=== PATIENT | male | born 1955 | race Caucasian/White ===

== ENCOUNTER 2022-06-17 07:27 | Inpatient (IN) | payer OTHER ==
--- NOTE | 2022-06-17 07:41 | ED ---
General Adult HPI - General Chief complaint: Shortness of Breath Stated complaint: VIOLA Time Seen by Provider: 06/17/22 07:30 Source: patient, EMS, RN notes reviewed Mode of arrival: EMS Limitations: no limitations - History of Present Illness Initial comments: Patient is a pleasant 66-year-old male presenting to the emergency department with concerns with difficulty in breathing. Onset of symptoms was 2 days ago while working in the yard. Patient does have chest pressure that has been persistent since that time rated 5/10. No radiation of pressure. Patient has had some difficulty in breathing. Dyspnea did not seem as bad yesterday but worsened again today. Patient denies any fevers. Patient does have recent exposure and spouse a month ago from COVID-19 infection. No history of similar symptoms previously. - Related Data Home Medications Medication Instructions Recorded Confirmed No Known Home Medications 06/17/22 06/17/22 Allergies Allergy/AdvReac Type Severity Reaction Status Date / Time No Known Allergies Allergy Verified 06/17/22 10:02 Review of Systems ROS Statement: Those systems with pertinent positive or pertinent negative responses have been documented in the HPI. ROS Other: All systems not noted in ROS Statement are negative. Constitutional: Denies: fever, chills Eyes: Denies: eye pain ENT: Denies: ear pain Respiratory: Reports: dyspnea. Denies: cough Cardiovascular: Reports: chest pain Endocrine: Denies: fatigue Gastrointestinal: Denies: abdominal pain Genitourinary: Denies: urgency Musculoskeletal: Denies: back pain Skin: Denies: rash Neurological: Denies: weakness Past Medical History Past Medical History: No Reported History History of Any Multi-Drug Resistant Organisms: None Reported Past Surgical History: Appendectomy, Hernia Repair Past Psychological History: No Psychological Hx Reported Smoking Status: Current every day smoker Past Alcohol Use History: Occasional Past Drug Use History: None Reported General Exam Limitations: no limitations General appearance: alert, in no apparent distress Head exam: Present: normocephalic Eye exam: Present: normal appearance Respiratory exam: Present: normal lung sounds bilaterally. Absent: respiratory distress, decreased breath sounds Cardiovascular Exam: Present: tachycardia GI/Abdominal exam: Present: soft. Absent: tenderness Extremities exam: Present: calf tenderness (Mild left upper) Back exam: Present: normal inspection Neurological exam: Present: alert Psychiatric exam: Present: normal affect, normal mood Skin exam: Present: normal color Course Vital Signs 06/17/22 06/17/22 06/17/22 07:29 07:47 07:49 Pulse Rate 128 H 118 H Respiratory 28 H 26 H 28 H Rate Blood Pressure 121/81 126/81 O2 Sat by Pulse 90 L 96 Oximetry 06/17/22 06/17/22 06/17/22 08:00 09:00 10:00 Pulse Rate 118 H 120 H 118 H Respiratory 26 H 15 15 Rate Blood Pressure 140/81 129/85 141/95 O2 Sat by Pulse 93 L 93 L 96 Oximetry EKG Findings - EKG Results: EKG: interpreted by NICHOLASD (Atrial tachycardia with a rate of 126. Right axis. Septal Q waves. Nonspecific ST-T) Medical Decision Making - Medical Decision Making Was pt. sent in by a medical professional or institution (, MAIKEL, COMMUNICATIONS STRATEGIST, urgent care, hospital, or detention...) When possible be specific @ -No Did you speak to anyone other than the patient for history (EMS, parent, family, police, friend...)? What history was obtained from this source @ -No Did you review nursing and triage notes (agree or disagree)? Why? @ -I reviewed and agree with nursing and triage notes Were old charts reviewed (outside hosp., previous admission, EMS record, old EKG, old radiological studies, urgent care reports/EKG's, detention records)? Report findings @ -No old charts were reviewed Differential Diagnosis (chest pain, altered mental status, abdominal pain women, abdominal pain men, vaginal bleeding, weakness, fever, dyspnea, syncope, headache, dizziness, GI bleed, back pain, seizure, CVA, palpatations, mental health)? @ -Differential Dyspnea: Coronary syndrome, arrhythmia, tamponade, asthma, COPD, pulmonary embolism, pneumonia, pneumothorax, pulmonary effusion, anaphylaxis, diabetic ketoacidosis, flailed chest, pulmonary contusion, diaphragmatic rupture, anemia, neuromuscular, this is not meant to be an all-inclusive list. EKG interpreted by me (3pts min.). @ -As above X-rays interpreted by me (1pt min.). @ -Chest x-ray does not reveal acute abnormality CT interpreted by me (1pt min.). @ -Report reviewed U/S interpreted by me (1pt. min.). @ -Are reviewed What testing was considered but not performed or refused? (CT, X-rays, U/S, labs)? Why? @ -None What meds were considered but not given or refused? Why? @ -None Did you discuss the management of the patient with other professionals (professionals i.e. , PA, COMMUNICATIONS STRATEGIST, lab, RT, psych nurse, neonatal social worker, weight training instructor, teacher, preventive medicine officer, hospice case manager)? Give summary @ -Case was discussed with cardiology, Dr. Rm who will consult for possible ekos. Case was also discussed with Dr. Mack, who will admit covering Dr. Lindquist me. Case also discussed with pulmonary Dr. Henson who will consult and agrees with ICU admission. Was smoking cessation discussed for >3mins.? @ -No Was critical care preformed (if so, how long)? @ -33 minutes crackle care time Were there social determinants of health that impacted care today? How? (Homelessness, low income, unemployed, alcoholism, drug addiction, transportation, low edu. Level, literacy, decrease access to med. care, intermediate, rehab)? @ -No Was there de-escalation of care discussed even if they declined (Discuss DNR or withdrawal of care, Hospice)? DNR status @ -No What co-morbidities impacted this encounter? (DM, HTN, Smoking, COPD, CAD, Cancer, CVA, ARF, Chemo, Hep., AIDS, mental health diagnosis, sleep apnea, mo rbid obesity)? @ -None Was patient admitted / discharged? Hospital course, mention meds given and route, prescriptions, significant lab abnormalities, going to OR and other pertinent info. @ -Patient reevaluated and still remains tachycardic. Patient still has dyspnea. Patient has large pulmonary embolism and will be admitted to intensive care unit and will need monitoring with heparin. Patient be evaluated with echo and cardiology for possible clot retrieval. Patient and family are updated on results and plan. Undiagnosed new problem with uncertain prognosis? @ -No Drug Therapy requiring intensive monitoring for toxicity (Heparin, Nitro, Insulin, Cardizem)? @ -Patient does require monitoring for heparin Were any procedures done? @ -No Diagnosis/symptom? @ -Large pulmonary embolism with heart strain. DVT Acute, or Chronic, or Acute on Chronic? @ -Acute, acute Uncomplicated (without systemic symptoms) or Complicated (systemic symptoms)? @ -Complicated with heart strain Side effects of treatment? @ -No Exacerbation, Progression, or Severe Exacerbation? @ -No Poses a threat to life or bodily function? How? (Chest pain, USA, PA, pneumonia, PE, COPD, DKA, ARF, appy, cholecystitis, CVA, Diverticulitis, Homicidal, Suicidal, threat to staff... and all critical care pts) @ -Large potential to life through hypoxia and heart strain - Lab Data Result diagrams: 06/17/22 07:42 06/17/22 07:42 Lab Results 06/17/22 06/17/22 06/17/22 Range/Units 07:42 07:42 07:42 WBC 14.7 H (3.8-10.6) k/uL RBC 5.86 (4.30-5.90) m/uL Hgb 17.3 (13.0-17.5) gm/dL Hct 51.4 (39.0-53.0) % MCV 87.8 (80.0-100.0) fL MCH 29.6 (25.0-35.0) pg MCHC 33.7 (31.0-37.0) g/dL RDW 13.7 (11.5-15.5) % Plt Count 182 (150-450) k/uL MPV 7.4 Neutrophils % 81 % Lymphocytes % 11 % Monocytes % 5 % Eosinophils % 2 % Basophils % 0 % Neutrophils # 11.9 H (1.3-7.7) k/uL Lymphocytes # 1.6 (1.0-4.8) k/uL Monocytes # 0.8 (0-1.0) k/uL Eosinophils # 0.3 (0-0.7) k/uL Basophils # 0.0 (0-0.2) k/uL PT 11.5 (9.0-12.0) sec INR 1.1 (<1.2) APTT 23.0 (22.0-30.0) sec D-Dimer 23.80 H (<0.60) mg/L FEU Sodium 138 (137-145) mmol/L Potassium 4.5 (3.5-5.1) mmol/L Chloride 108 H (98-107) mmol/L Carbon Dioxide 19 L (22-30) mmol/L Anion Gap 11 mmol/L BUN 19 (9-20) mg/dL Creatinine 1.06 (0.66-1.25) mg/dL Est GFR (CKD-EPI)AfAm 86 (>60 ml/min/1.73 sqM) Est GFR (CKD-EPI)NonAf 74 (>60 ml/min/1.73 sqM) Glucose 157 H (74-99) mg/dL Plasma Lactic Acid Cody (0.7-2.0) mmol/L Calcium 9.2 (8.4-10.2) mg/dL Magnesium 1.9 (1.6-2.3) mg/dL Total Bilirubin 1.7 H (0.2-1.3) mg/dL AST 29 (17-59) U/L ALT 30 (4-49) U/L Alkaline Phosphatase 71 (38-126) U/L Troponin I (0.000-0.034) ng/mL Total Protein 7.8 (6.3-8.2) g/dL Albumin 4.2 (3.5-5.0) g/dL 06/17/22 06/17/22 Range/Units 07:42 07:42 WBC (3.8-10.6) k/uL RBC (4.30-5.90) m/uL Hgb (13.0-17.5) gm/dL Hct (39.0-53.0) % MCV (80.0-100.0) fL MCH (25.0-35.0) pg MCHC (31.0-37.0) g/dL RDW (11.5-15.5) % Plt Count (150-450) k/uL MPV Neutrophils % % Lymphocytes % % Monocytes % % Eosinophils % % Basophils % % Neutrophils # (1.3-7.7) k/uL Lymphocytes # (1.0-4.8) k/uL Monocytes # (0-1.0) k/uL Eosinophils # (0-0.7) k/uL Basophils # (0-0.2) k/uL PT (9.0-12.0) sec INR (<1.2) APTT (22.0-30.0) sec D-Dimer (<0.60) mg/L FEU Sodium (137-145) mmol/L Potassium (3.5-5.1) mmol/L Chloride (98-107) mmol/L Carbon Dioxide (22-30) mmol/L Anion Gap mmol/L BUN (9-20) mg/dL Creatinine (0.66-1.25) mg/dL Est GFR (CKD-EPI)AfAm (>60 ml/min/1.73 sqM) Est GFR (CKD-EPI)NonAf (>60 ml/min/1.73 sqM) Glucose (74-99) mg/dL Plasma Lactic Acid Cody 1.8 (0.7-2.0) mmol/L Calcium (8.4-10.2) mg/dL Magnesium (1.6-2.3) mg/dL Total Bilirubin (0.2-1.3) mg/dL AST (17-59) U/L ALT (4-49) U/L Alkaline Phosphatase (38-126) U/L Troponin I 0.254 H* (0.000-0.034) ng/mL Total Protein (6.3-8.2) g/dL Albumin (3.5-5.0) g/dL Critical Care Time Critical Care Time: Yes Total Critical Care Time: 33 Disposition Clinical Impression: Bilateral pulmonary embolism, DVT (deep venous thrombosis) Disposition: ADMITTED IP TO THIS [facility] Condition: Critical Is patient prescribed a controlled substance at d/c from ED?: No Referrals: None,Stated [REFERRING] - 1-2 days Time of Disposition: 10:11
[2022-06-17 07:56] LABS: Basophils % (A) 0 %; Eosinophils # (A) 0.3 k/uL (0-0.7); Eosinophils % (A) 2 %; HCT 51.4 % (39.0-53.0); HGB 17.3 gm/dL (13.0-17.5); Lymphocytes # (A) 1.6 k/uL (1.0-4.8); Lymphocytes % (A) 11 %; MCH 29.6 pg (25.0-35.0); MCHC 33.7 g/dL (31.0-37.0); MCV 87.8 fL (80.0-100.0); Mean Platelet Volume 7.4; Monocytes # (A) 0.8 k/uL (0-1.0); Monocytes % (A) 5 %; Neutrophils # (A) 11.9 k/uL (1.3-7.7); Neutrophils % (A) 81 %; Platelet Count 182 k/uL (150-450); RBC 5.86 m/uL (4.30-5.90); RDW 13.7 % (11.5-15.5); WBC 14.7 k/uL (3.8-10.6)
[2022-06-17 08:11] LABS: Albumin 4.2 g/dL (3.5-5.0); Calcium 9.2 mg/dL (8.4-10.2); Magnesium 1.9 mg/dL (1.6-2.3); Potassium 4.5 mmol/L (3.5-5.1); Total Bilirubin 1.7 mg/dL (0.2-1.3); Total Protein 7.8 g/dL (6.3-8.2)
[2022-06-17 08:17] LABS: INR 1.1 (<1.2); Prothrombin Time 11.5 sec (9.0-12.0)
--- NOTE | 2022-06-17 08:35 | XR ---
EXAMINATION TYPE: XR chest 2V DATE OF EXAM: 06/17/2022 COMPARISON: NONE HISTORY: Shortness of breath TECHNIQUE: Frontal and lateral views of the chest are obtained. FINDINGS: Scattered senescent parenchymal changes noted. Hyperinflation compatible with COPD. No evidence for infiltrate. No evidence for atelectasis. Heart size is stable. Mediastinal structures are stable and grossly unremarkable. No evidence for hilar prominence. Degenerative changes dorsal spine. IMPRESSION: 1. No evidence for acute pulmonary disease.
[2022-06-17] MEDS ORDERED: HEPARIN SODIUM 1,000 UN/ML (10ML VL) IV ONE ×2 (08:57→13:48)
[2022-06-17] MEDS ORDERED: HEPARIN SODIUM 1,000 UN/ML (10ML VL) IV PRN ×2 (08:57→14:47)
--- NOTE | 2022-06-17 08:57 | US ---
EXAMINATION TYPE: US venous doppler duplex LE LT DATE OF EXAM: 06/17/2022 8:49 AM COMPARISON: NONE CLINICAL INDICATION: Male, 66 years old with history of pain; pain SOB SIDE PERFORMED: Left TECHNIQUE: The lower extremity deep venous system is examined utilizing real time linear array sonog rey with graded compression, doppler sonography and color-flow sonography. VESSELS IMAGED: Common Femoral Vein Deep Femoral Vein Greater Saphenous Vein * Femoral Vein Popliteal Vein Small Saphenous Vein * Proximal Calf Veins (* superficial vessels) Left Leg: Positive for DVT from Common Femoral Vein to Popliteal Vein. IMPRESSION: Positive deep vein thrombosis involving the common femoral vein to popliteal vein. Findings communicated to Dr. Chinedu Jdae DO on 06/17/2022 8:[address] nAgel Giron.
[2022-06-17] MEDS ORDERED: HEPARIN SOD,PORK IN 0.45% NACL 25,000 UNIT in 0.45% NACL 1 250ML.BAG IV SCH (09:00)
--- NOTE | 2022-06-17 09:32 | CT ---
EXAMINATION TYPE: CT angio chest CT DLP: 1036.8 mGycm, Automated exposure control for dose reduction was used. DATE OF EXAM: 06/17/2022 9:14 AM COMPARISON: Chest radiograph same day. CLINICAL INDICATION:Male, 66 years old with history of dyspnea; PE TECHNIQUE/CONTRAST: CTA scan of the thorax is performed with IV Contrast, patient injected with 100 mL of Isovue 370, pul monary embolism protocol. MIP images are created and reviewed [facility] FINDINGS: Pulmonary Artery: Bilateral pulmonary emboli involving the right and left pulmonary arteries extendin g into the lobar, segmental and subsegmental branches. There is flattening of the interventricular se ptum with reflux of contrast into the IVC. RV:LV = 41 mm : 26 mm = 1.57. The pulmonary trunk measures 3.2 cm. Lungs/Pleura: Few groundglass opacities most pronounced in the right upper lung more centrally and le ft lower lobe. There is motion artifact. Posterior dependent atelectasis. Airway: Large airways are patent. Heart: Heart is within normal limits for size. Vasculature: No evidence of aortic aneurysm. Mediastinum: No gross evidence of adenopathy. Musculoskeletal: No acute osseous abnormalities, multilevel disc degeneration changes with bridging s yndesmophytes compatible with diffuse idiopathic skeletal hyperostosis. Soft Tissues: Unremarkable. Lower neck: No significant findings. Upper Abdomen: No significant findings. IMPRESSION: 1. Bilateral pulmonary emboli extending into the lobar, segmental and subsegmental branches. There i s evidence of right heart strain. RV:LV = 1.57. 2. More central right upper lung ground glass opacity could represent pulmonary infarct versus super imposed early infectious/inflammatory process. 3. Evidence of pulmonary hypertension. Findings communicated to Dr. Chinedu Jade DO on 06/17/2022 9:[address] Angel Giron.
[2022-06-17] MEDS ORDERED: NALOXONE 0.4 MG/ML 1 ML VIAL IV PRN (10:11)
[2022-06-17] MEDS: PANTOPRAZOLE 40 MG/10 ML VIAL IV SCH (10:56)
[2022-06-17 11:21] LABS: Glucose,Whole Blood 109 mg/dL (70-110)
--- NOTE | 2022-06-17 12:12 | P.CRDCN ---
History of Present Illness Consult date: 06/17/22 History of present illness: HISTORY OF PRESENT ILLNESS: This is a 66-year-old male with a past medical history significant for DVT and nicotine dependence. 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 We have been asked to see the patient in consultation for PE. Patient examined at the bedside in the emergency room. Patient states he has been feeling short of breath for a few days. However his shortness of breath became worse today which prompted him to come to the emergency room. The patient was found to have left lower extremity DVT and pulmonary embolism with possible right heart strain. The patient was placed on IV heparin. The patient denies any chest pain or pressure. He continues to report shortness of breath. He is on 2 L nasal cannula. The patient reports he has had 2 or 3 blood clots in his legs over the past 15 years. He states that he was on anticoagulation at one time but believes the last time he was on blood thinners was about 12 years ago. * EKG reveals sinus tachycardia with heart rate of 126 * Chest xray negative for acute process * Venous Doppler: Positive for left lower extremity DVT * Chest CTA: Bilateral pulmonary embolism extending into the lobar, segmental and subsegmental branches. Evidence of right heart strain. * Laboratory data: WBC 14.7. Hemoglobin 17.3. Platelet count 182. D-dimer 23.80. Sodium 138. Potassium 4.5. B UN 19. Creatinine 1.06 troponin 0.254. * Current home cardiac medications include none REVIEW OF SYSTEMS: At the time of my exam: CONSTITUTIONAL: Denies fever or chills. HEENT: Denies blurred vision, vision changes, or eye pain. Denies hemoptysis CARDIOVASCULAR: Denies chest pain. Denies orthopnea. Denies PND. Denies palpitations RESPIRATORY: Denies shortness of breath. GASTROINTESTINAL: Denies abdominal pain. Denies nausea or vomiting. HEMATOLOGIC: Denies bleeding disorders. GENITOURINARY: Denies any blood in urine. SKIN: Denies pruitis. Denies rash. PHYSICAL EXAM: VITAL SIGNS: Reviewed. GENERAL: Well-developed in no acute distress. HEENT: Head is normocephalic. Pupils are equal, round. Sclerae anicteric. Mucous membranes of the mouth are moist. Neck supple. No JVD or thyromegaly LUNGS: Respirations even and unlabored. Lungs essentially clear to auscultation bilaterally. HEART: Regular rate and rhythm. S1 and S2 heard. ABDOMEN: Soft. Nondistended. Nontender. EXTREMITIES: Normal range of motion. No clubbing or cyanosis. Peripheral pulses intact. No lower extremity edema NEUROLOGIC: Awake and alert. Oriented x 3. 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 Signing provider agrees with the documented findings, assessment, and plan of care. Past Medical History Past Medical History: No Reported History History of Any Multi-Drug Resistant Organisms: None Reported Past Surgical History: Appendectomy, Hernia Repair Past Psychological History: No Psychological Hx Reported Smoking Status: Current every day smoker Past Alcohol Use History: Occasional Past Drug Use History: None Reported Medications and Allergies Home Medications Medication Instructions Recorded Confirmed Type No Known Home Medications 06/17/22 06/17/22 History Allergies Allergy/AdvReac Type Severity Reaction Status Date / Time No Known Allergies Allergy Verified 06/17/22 10:02 Physical Exam Vitals: Vital Signs Pulse Resp BP Pulse Ox 06/17/22 10:00 118 H 15 141/95 96 06/17/22 09:00 120 H 15 129/85 93 L 06/17/22 08:00 118 H 26 H 140/81 93 L 06/17/22 07:49 28 H 06/17/22 07:47 118 H 26 H 126/81 96 06/17/22 07:29 128 H 28 H 121/81 90 L Intake and Output 06/16/22 06/17/22 06/17/22 22:59 06:59 14:59 Other: Weight 149.685 kg Results 06/17/22 07:42 06/17/22 07:42 Cardiac Enzymes 06/17/22 06/17/22 Range/Units 07:42 07:42 AST 29 (17-59) U/L Troponin I 0.254 H* (0.000-0.034) ng/mL Coagulation 06/17/22 Range/Units 07:42 PT 11.5 (9.0-12.0) sec APTT 23.0 (22.0-30.0) sec CBC 06/17/22 Range/Units 07:42 WBC 14.7 H (3.8-10.6) k/uL RBC 5.86 (4.30-5.90) m/uL Hgb 17.3 (13.0-17.5) gm/dL Hct 51.4 (39.0-53.0) % Plt Count 182 (150-450) k/uL Comprehensive Metabolic Panel 06/17/22 Range/Units 07:42 Sodium 138 (137-145) mmol/L Potassium 4.5 (3.5-5.1) mmol/L Chloride 108 H (98-107) mmol/L Carbon Dioxide 19 L (22-30) mmol/L BUN 19 (9-20) mg/dL Creatinine 1.06 (0.66-1.25) mg/dL Glucose 157 H (74-99) mg/dL Calcium 9.2 (8.4-10.2) mg/dL AST 29 (17-59) U/L ALT 30 (4-49) U/L Alkaline Phosphatase 71 (38-126) U/L Total Protein 7.8 (6.3-8.2) g/dL Albumin 4.2 (3.5-5.0) g/dL Current Medications Generic Name Dose Route Start Last Admin Trade Name Freq PRN Reason Stop Dose Admin Acetaminophen 650 mg 06/17/22 10:11 Acetaminophen Tab 325 Mg Tab PO Q4HR PRN Fever and/or Mild Pain Heparin Sodium (Porcine) 0 unit 06/17/22 08:57 Heparin Sodium 1,000 Un/Ml (10ml Vl) IV PER PROTOCOL PRN Low PTT Protocol Heparin Sodium/Sodium Chloride 250 mls @ 22.992 mls/hr 06/17/22 09:00 06/17/22 09:20 25,000 unit/ Sodium Chloride IV 15.36 units/kg/hr .[id number] SHANNAN 22.992 mls/hr Administration Protocol 15.36 UNITS/KG/HR Naloxone HCl 0.2 mg 06/17/22 10:11 Naloxone 0.4 Mg/Ml 1 Ml Vial IV Q2M PRN Opioid Reversal Pantoprazole Sodium 40 mg 06/17/22 10:15 06/17/22 10:56 Pantoprazole 40 Mg/10 Ml Vial IV 40 mg DAILY SHANNAN Administration Intake and Output 06/16/22 06/17/22 06/17/22 22:59 06:59 14:59 Other: Weight 149.685 kg Patient Weight 06/18/22 06:59 Weight 149.685 kg 06/17/22 07:42 06/17/22 07:42
[2022-06-17] MEDS ORDERED: fentaNYL (PF) 50 MCG/ML 2 ML AMP ONE (12:57)
[2022-06-17] MEDS ORDERED: LIDOCAINE 1% INJ 10MG/ML (30 ML VIAL-PF) SQ ONE (13:05)
[2022-06-17] MEDS ORDERED: fentaNYL (PF) 50 MCG/ML 2 ML AMP IV ONE (13:05)
[2022-06-17] MEDS ORDERED: SODIUM CHLORIDE 0.9% 500 ML 500 ML IV ONE (13:05)
--- NOTE | 2022-06-17 13:45 | P.CNPUL ---
History of Present Illness Consult date: 06/17/22 Requesting physician: Ambrosio Cox Reason for consult: dyspnea, chest pain, hypoxemia, pulmonary embolism, abnormal CXR/CT Chief complaint: Shortness of breath. History of present illness: Pulmonary/critical care consult dated 06/17/2022. 66-year-old male seen in the intensive care unit, for shortness of breath. He was initially evaluated in the emergency room, on June 17, by Dr. Leonid Jade. The patient came into the emergency room complaining of 2 days worth of increasing shortness of breath, while working out in the yard. The patient also admitted to some chest pressure, in the center of his chest. He denied any fever or chills. He denied any cough or phlegm production. The patient apparently takes no medications at home, and has no significant past medical history. He's had an appendectomy and hernia surgery in the past. He does smoke cigarettes on a regular basis. No illicit drug use, and occasional alcohol use. Laboratory data includes a white count of 14.7, with a normal hemoglobin, hematocrit, and platelet count. His d-dimer was nearly 24. Sodium 138, potassium 4.5, chlorides 108, CO2 19, anion gap 11, BUN 19, creatinine 1.06. Glucose was 157. The patient's troponin was 0.254. Testing for coronavirus was negative. Chest x-ray was normal to my eye. Dopplers of the lower extremities revealed a left DVT in the common femoral vein. CT angiogram revealed bilateral pulmonary emboli, with evidence of right heart strain. Review of Systems REVIEW OF SYSTEMS: CONSTITUTIONAL: [Negative.] NEUROLOGIC: [ Negative.] HEENT: [ Negative.] CARDIAC: Chest pressure PULMONARY: Shortness of breath. GI: [Negative.] : [Negative.] RHEUMATOLOGIC: [ Negative.] IMMUNOLOGIC: [ Negative.] ENDOCRINE: [Negative. ] DERMATOLOGIC: [Negative.] Past Medical History Past Medical History: No Reported History History of Any Multi-Drug Resistant Organisms: None Reported Past Surgical History: Appendectomy, Hernia Repair Past Psychological History: No Psychological Hx Reported Smoking Status: Current every day smoker Past Alcohol Use History: Occasional Past Drug Use History: None Reported Medications and Allergies Home Medications Medication Instructions Recorded Confirmed Type No Known Home Medications 06/17/22 06/17/22 History Allergies Allergy/AdvReac Type Severity Reaction Status Date / Time No Known Allergies Allergy Verified 06/17/22 10:02 Physical Exam Osteopathic Statement: *. No significant issues noted on an osteopathic structural exam other than those noted in the History and Physical/Consult. Vitals: Vital Signs Pulse Resp BP Pulse Ox 06/17/22 10:00 118 H 15 141/95 96 06/17/22 09:00 120 H 15 129/85 93 L 06/17/22 08:00 118 H 26 H 140/81 93 L 06/17/22 07:49 28 H 06/17/22 07:47 118 H 26 H 126/81 96 06/17/22 07:29 128 H 28 H 121/81 90 L Intake and Output 06/16/22 06/17/22 06/17/22 22:59 06:59 14:59 Other: Weight 149.685 kg No acute distress, oriented 3. 4 L saturation 96%. No conversational dyspnea or use of accessory muscles. HEENT examination is grossly unremarkable. Neck supple. Full range of motion. No adenopathy thyromegaly or neck vein distention. Cardiovascular examination reveals regular rhythm rate. S1-S2 normal. No S3 or S4. No discernible murmur noted. Heart sounds are distant. Heart rate about 110 bpm. Lungs reveal mostly clear breath sounds. Minimal rhonchi noted. No wheezes or crackles. Breath sounds are equal bilaterally. Abdomen soft bowel sounds are heard. No masses or tenderness. Extremities are intact. No cyanosis clubbing or edema. Left leg tenderness on palpation. Skin is without rash or lesion. Neurologic examination is brief but nonfocal. Results - Laboratory Findings CBC and BMP: 06/17/22 07:42 06/17/22 07:42 PT/INR, D-dimer PT 11.5 sec (9.0-12.0) 06/17/22 07:42 INR 1.1 (<1.2) 06/17/22 07:42 D-Dimer 23.80 mg/L FEU (<0.60) H 06/17/22 07:42 Abnormal lab findings: Abnormal Labs 06/17/22 06/17/22 06/17/22 07:42 07:42 07:42 WBC 14.7 H Neutrophils # 11.9 H D-Dimer 23.80 H Chloride 108 H Carbon Dioxide 19 L Glucose 157 H Total Bilirubin 1.7 H Troponin I 06/17/22 07:42 WBC Neutrophils # D-Dimer Chloride Carbon Dioxide Glucose Total Bilirubin Troponin I 0.254 H* - Diagnostic Findings Chest x-ray: image reviewed CT scan - chest: image reviewed U/S of Legs: image reviewed Assessment and Plan Assessment: Acute hypoxemic respiratory failure secondary to acute bilateral pulmonary e mbolism, with right heart strain. History of left DVT. No significant past medical history. Ongoing tobacco use with nicotine addiction. Plan: Plan dated 06/17/2022. The patient has been seen by cardiology. The patient be taken to the catheterization lab for suction thrombectomy. The patient will come back to the intensive care unit for further monitoring and management. Labs, x-rays, medications are reviewed. The patient had bilateral pulmonary emboli with right heart strain. In addition, he had a left lower extremity DVT. We will continue to follow and make recommendations where appropriate. Time with Patient: Greater than 30
[2022-06-17] MEDS ORDERED: IOPAMIDOL-370 100ML BTL INJ ONE (14:31)
[2022-06-17] MEDS ORDERED: RX INFO: IV CONTRAST WAS GIVEN 1 EACH MISC MISCELLANE PRN (14:46)
[2022-06-17] MEDS ORDERED: SODIUM CHLORIDE 0.9% 1,000 ML IV SCH (15:00)
--- NOTE | 2022-06-17 15:03 | P.PCN ---
Date of Procedure: 06/17/22 Description of Procedure: Pulmonary embolism thrombectomy The patient is a 66-year-old male with a prior history of DVT, on anticoagulation who presented with 3 days progressive dyspnea, in the emergency room he was noted to be tachycardiac is elevated troponin and NT proBNP. He CT angiogram showed bilateral pulmonary embolism with RV strain. His echocardiogram showed dilated right ventricle with decrease in RV systolic function. Procedure: The procedure as well as the risks and the complications were discussed with the patient, he was brought into the can labeler in the fasting state, he received 50 g of fentanyl to achieve moderate sedation. Subsequently using micropuncture catheter the right femoral vein was cannulated, the catheter was exchanged to a 7-Nigerien sheath. Subsequently a 7-Nigerien Catheter was positioned in the right pulmonary artery, a 0.018 victory wire was introduced and the [place]-Bernie catheter subsequently a 6-Nigerien right Desiree catheter and after removing the wire an Amplatz 0.35 wire was advanced and the Desiree was removed. Subsequently the 24-Nigerien Inari sheath was introduced. Then over the Amplatz wire the 24-Nigerien Inari Triever catheter was advanced and positioned in the right pulmonary artery, after removing the dilator aspirations were done with removal of large thrombotic material. Following the cath was positioned main pulmonary artery and aspiration was done and following that it was advanced in the left pulmonary artery and repeat aspirations were done. Subsequently the curved Triever 20 curve aspiration device was advanced and aspiration were done in the left lower pulmonary artery after obtaining a pulmonary angiogram on the left side. After the last aspiration the catheters and wire were removed. A figure of 8 suture was placed and using a flow stasis device was positioned securely hemostasis. The patient was returned to his room in stable with improvement of his breathing status he received 5000 units of heparin, his ACT was followed. Impression: Successful aspiration of large amount of thrombotic material from the pulmonary artery, right and left Recommendations: The patient will be started on IV heparin in 2 hours and transition to oral anticoagulation tomorrow. Depending on his progress further recommendations will be made. The findings and recommendations were discussed with the patient and his family, they are in full understanding and agreement. Duration of sedation 86 minutes.
[2022-06-17 16:24] LABS: Basophils % (A) 0 %; Eosinophils # (A) 0.1 k/uL (0-0.7); Eosinophils % (A) 1 %; HCT 50.9 % (39.0-53.0); HGB 17.1 gm/dL (13.0-17.5); Lymphocytes # (A) 1.7 k/uL (1.0-4.8); Lymphocytes % (A) 13 %; MCH 30.1 pg (25.0-35.0); MCHC 33.5 g/dL (31.0-37.0); MCV 89.8 fL (80.0-100.0); Mean Platelet Volume 7.5; Monocytes # (A) 0.8 k/uL (0-1.0); Monocytes % (A) 6 %; Neutrophils # (A) 10.5 k/uL (1.3-7.7); Neutrophils % (A) 79 %; Platelet Count 180 k/uL (150-450); RBC 5.67 m/uL (4.30-5.90); RDW 13.8 % (11.5-15.5); WBC 13.3 k/uL (3.8-10.6)
[2022-06-17 16:34] LABS: Potassium 4.7 mmol/L (3.5-5.1)
--- NOTE | 2022-06-17 16:35 | IR ---
EXAMINATION TYPE: IR transcath embolizat therapy DATE OF EXAM: 06/17/2022 CLINICAL HISTORY: Bilateral pulmonary emboli. TECHNIQUE: Fluoroscopy. COMPARISON: None. FINDINGS: Fluoroscopic guidance was provided during intravascular catheter embolization procedure pe rformed by vascular Doctor. A total of 32.5 minutes of fluoroscopic time was utilized during the pro cedure and 48 spot images was acquired. Please refer to procedure note for further details. IMPRESSION: As Above. TOTAL DAP= 106 Gy x cm2
[2022-06-17 16:39] LABS: INR 1.2 (<1.2); Partial Thromboplastin Time 33.7 sec (22.0-30.0); Prothrombin Time 12.6 sec (9.0-12.0)
[2022-06-17] MEDS: ATORVASTATIN 40 MG TAB PO SCH (17:06)
[2022-06-17] MEDS: HEPARIN SOD,PORK IN 0.45% NACL 25,000 UNIT in 0.45% NACL 1 250ML.BAG IV SCH (17:07)
--- NOTE | 2022-06-17 17:30 | P.HPIM ---
History of Present Illness H&P Date: 06/17/22 Patient is a 66-year-old male with history of tobacco smoking presents the ED for progressively worsening shortness of breath over the past 2-3 days. He reports being diagnosed with DVT twice in his life both times being treated with an oral anticoagulant for 3-6 months. 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 This morning, he woke up immensely short of breath which prompted him to come to the ED. Patient denies any chest pain or lightheadedness. He denies any headache, lower extremity edema, nausea vomiting, fever or chills, cough, palpitations, changes in urination or bowel habits. No changes in appetite or weight. He denies any numbness/weakness to extremities. In the ED, he was noted to have a respiratory rate of 28, pulse of 128 and O2 saturation of 90% on room air. CBC showed leukocytosis of 14.7. Coagulation panel was within normal limits. D-dimer elevated at 23.8. CMP showed chloride 108, bicarb 19, glucose 157, total bilirubin of 1.7. Troponin was 0.254. BNP was 940. COVID-19 negative. EKG showed atrial tachycardia with ventricular rate of 126. Chest x-ray was negative. CTA chest showed bilateral pulmonary emboli with evidence of right heart strain. Venous Doppler showed positive DVT from the common femoral vein to the popliteal vein of the left leg. Patient started on a heparin drip. He underwent thrombectomy and was admitted to ICU. Pertinent positives and negatives as discussed in HPI, a complete review of systems was performed and all other systems are negative. General: non toxic, no distress, appears at stated age, morbidly obese Derm: warm, dry Head: atraumatic, normocephalic, symmetric Eyes: EOMI, no lid lag, anicteric sclera Mouth: no lip lesion, mucus membranes moist Cardiovascular: Tachycardic, no murmur Lungs: Decreased breath sounds bilateral, no rhonchi, no rales , no accessory muscle use Abdominal: soft, nontender to palpation, no guarding, no appreciable organomegaly Ext: no gross muscle atrophy, no edema, no contractures Neuro: no focal neuro deficits Psych: Alert, oriented, appropriate affect Acute hypoxic respiratory failure Acute pulmonary embolus with right heart strain Acute deep vein thrombosis Non-ST elevation PR, likely demand ischemia History of tobacco abuse Leukocytosis Based on my assessment of this patient, this patient meets a high complexity level of care. I have reviewed the following senior billing consultant notes: None. I have reviewed the results of the following tests: CBC showed leukocytosis of 14.7. Coagulation panel was within normal limits. D-dimer elevated at 23.8. CMP showed chloride 108, bicarb 19, glucose 157, total bilirubin of 1.7. Troponin was 0.254. BNP was 940. COVID-19 negative. I have ordered the following tests: CBC and APTT ordered for tomorrow morning. I have discussed the care of this patient with the following independent historian: None. I have independently interpreted the following test below: EKG showed atrial tachycardia with ventricular rate of 126. Chest x-ray was negative for acute findings. I have discussed the management of this patient with the following physician: This was discussed with the ED physician and decision made to admit the patient for treatment of pulmonary embolus with right heart strain. This patient has a high risk of morbidity due to the following reasons: Patient has an acute diagnosis of pulmonary embolus with right heart strain that poses a threat to life or bodily function. He underwent thrombectomy with aspiration of thrombotic material from bilateral pulmonary artery. Plans to continue heparin drip 2 hours postprocedure and monitor in the ICU overnight. He will need daily monitoring of APTT while on the heparin drip. His troponin elevation is likely demand ischemia due to right heart strain from pulmonary embolus. Leukocytosis likely reactive with no signs of active infection. Patient will likely need lifelong anticoagulation. Patient names his daughter decision maker if he can't make decisions for himself. Patient would like to be full code. Past Medical History Past Medical History: No Reported History History of Any Multi-Drug Resistant Organisms: None Reported Past Surgical History: Appendectomy, Hernia Repair Past Psychological History: No Psychological Hx Reported Smoking Status: Current every day smoker Past Alcohol Use History: Occasional Past Drug Use History: None Reported - Past Family History Father Family Medical History: Hypertension Additional Family Medical History / Comment(s): of prostate CA Medications and Allergies Home Medications Medication Instructions Recorded Confirmed Type No Known Home Medications 06/17/22 06/17/22 History Allergies Allergy/AdvReac Type Severity Reaction Status Date / Time No Known Allergies Allergy Verified 06/17/22 10:02 Physical Exam Vitals: Vital Signs Pulse Resp BP Pulse Ox 06/17/22 10:00 118 H 15 141/95 96 06/17/22 09:00 120 H 15 129/85 93 L 06/17/22 08:00 118 H 26 H 140/81 93 L 06/17/22 07:49 28 H 06/17/22 07:47 118 H 26 H 126/81 96 06/17/22 07:29 128 H 28 H 121/81 90 L Intake and Output 06/16/22 06/17/22 06/17/22 22:59 06:59 14:59 Other: Weight 149.685 kg Results CBC & Chem 7: 06/17/22 15:49 06/17/22 15:49 Labs: Abnormal Lab Results - Last 24 Hours (Table) 06/17/22 06/17/22 06/17/22 Range/Units 07:42 07:42 07:42 WBC 14.7 H (3.8-10.6) k/uL Neutrophils # 11.9 H (1.3-7.7) k/uL D-Dimer 23.80 H (<0.60) mg/L FEU Chloride 108 H (98-107) mmol/L Carbon Dioxide 19 L (22-30) mmol/L Glucose 157 H (74-99) mg/dL Total Bilirubin 1.7 H (0.2-1.3) mg/dL Troponin I (0.000-0.034) ng/mL 06/17/22 Range/Units 07:42 WBC (3.8-10.6) k/uL Neutrophils # (1.3-7.7) k/uL D-Dimer (<0.60) mg/L FEU Chloride (98-107) mmol/L Carbon Dioxide (22-30) mmol/L Glucose (74-99) mg/dL Total Bilirubin (0.2-1.3) mg/dL Troponin I 0.254 H* (0.000-0.034) ng/mL
[2022-06-17] MEDS: NICOTINE 21MG/24HR PATCH TRANSDERM SCH (17:40)
--- NOTE | 2022-06-17 18:02 | CA ---
Transthoracic Echo Report Name: Sam Mayfield Age: 66 Gender: M : 1955 Exam Date: 06/17/2022 11:58 Exam Location: [facility] Ht (in): 77 Wt (lb): 330 Ordering Physician: Chinedu Jade DO Attending/Referring Phys: Administration Clerk Alexa Patton RDCS Procedure CPT: Indications: PE Cardiac Hx: Technical Quality: Technically difficult study Contrast 1: Lumason Total Dose (mL): 5 Contrast 2: Total Dose (mL): MEASUREMENTS (Male / Female) Normal Values 2D ECHO LV Diastolic Diameter PLAX 3.5 cm 4.2 - 5.9 / 3.9 - 5.3 cm LV Systolic Diameter PLAX 2.9 cm IVS Diastolic Thickness 1.7 cm 0.6 - 1.0 / 0.6 - 0.9 cm LVPW Diastolic Thickness 1.1 cm 0.6 - 1.0 / 0.6 - 0.9 cm LV Relative Wall Thickness 0.8 RV Internal Dim ED PLAX 4.5 cm LA Volume 64.5 cm??? 18 - 58 / 22 - 52 cm??? M-MODE Aortic Root Diameter MM 3.1 cm LA Systolic Diameter MM 3.4 cm LA Ao Ratio MM 1.1 DOPPLER AV Peak Velocity 90.1 cm/s AV Peak Gradient 3.2 mmHg AV Mean Velocity 74.1 cm/s AV Mean Gradient 2.3 mmHg AV Velocity Time Integral 12.7 cm LVOT Peak Velocity 96.6 cm/s LVOT Peak Gradient 3.7 mmHg LVOT Velocity Time Integral 16.5 cm TR Peak Velocity 280.6 cm/s TR Peak Gradient 31.5 mmHg Right Atrial Pressure 20.0 mmHg Pulmonary Artery Systolic Pressu 51.5 mmHg Right Ventricular Systolic Press 51.5 mmHg FINDINGS Left Ventricle Moderately increased left ventricular wall thickness. Left ventricular cavity size normal. Abnormal septal motion. Left ventricular ejection fraction is estimated at 45-50 %. Right Ventricle Severe right ventricular dilatation. Moderate pulmonary hypertension. Right ventricular systolic pressure estimated at 52 mm hg. Right heart strain noted, TAPSE 18 mm, RV S' 7cm/sec Right Atrium Normal right atrial size. Left Atrium Mildly increased left atrial volume. Mitral Valve Structurally normal mitral valve. Mild mitral annular calcification. Mild-to- moderate mitral regurgitation. Aortic Valve No aortic valve stenosis or regurgitation. Tricuspid Valve [id number] tricuspid regurgitation. Pulmonic Valve Structurally normal pulmonic valve. Trace pulmonic regurgitation. Pericardium No pericardial effusion. Aorta Normal size aortic root and proximal ascending aorta. CONCLUSIONS Dilated right ventricle with RV systolic dysfunction Moderate pulmonary hypertension Mild LV systolic dysfunction Mild to moderate mitral and tricuspid regurgitation Previewed by: Dr. Babar Moreno MD (Electronically Signed) Final Date: 17 June 2022 18:01
[2022-06-18] MEDS: HEPARIN SOD,PORK IN 0.45% NACL 25,000 UNIT in 0.45% NACL 1 250ML.BAG IV SCH ×2 (00:59→17:38)
[2022-06-18 04:40] LABS: Basophils % (A) 0 %; Eosinophils # (A) 0.3 k/uL (0-0.7); Eosinophils % (A) 2 %; HCT 48.7 % (39.0-53.0); HGB 16.2 gm/dL (13.0-17.5); Lymphocytes # (A) 2.6 k/uL (1.0-4.8); Lymphocytes % (A) 19 %; MCH 29.5 pg (25.0-35.0); MCHC 33.2 g/dL (31.0-37.0); MCV 88.8 fL (80.0-100.0); Mean Platelet Volume 7.8; Monocytes # (A) 0.9 k/uL (0-1.0); Monocytes % (A) 6 %; Neutrophils # (A) 9.6 k/uL (1.3-7.7); Neutrophils % (A) 71 %; Platelet Count 176 k/uL (150-450); RBC 5.48 m/uL (4.30-5.90); RDW 13.8 % (11.5-15.5); WBC 13.5 k/uL (3.8-10.6)
[2022-06-18 04:51] LABS: Calcium 8.5 mg/dL (8.4-10.2); Potassium 4.2 mmol/L (3.5-5.1)
--- NOTE | 2022-06-18 07:40 | P.PN ---
Subjective Progress Note Date: 06/18/22 PROGRESS NOTE The patient is a 66-year-old male with a prior history of DVT who presented with acute dyspnea and was found to have acute pulmonary embolism. He was not on anticoagulation on presentation. He has a history of chronic tobacco use. His echocardiogram showed dilatation of the RV side with decreased systolic function and evidence of pulmonary hypertension. He underwent thrombectomy with removal of large thrombotic material. He is feeling much better, on room air. He denies any chest discomfort, dizziness or palpitations. He continues to be on IV heparin. He is in sinus mechanism and hemodynamically stable. He had evidence of DVT on the left side Medications: IV heparin, Lipitor 40 mg daily. PHYSICAL EXAMINATION: Blood pressure 119/50 heart rate 90 LUNGS: Clear to auscultation HEART: Regular rate and rhythm, S1, S2. No S3. systolic ejection murmur ABDOMEN: Soft, nontender, no organomegaly EXTREMETIES: Trace bilateral edema with more on the left side, right groin no hematoma LAB: Hemoglobin 16.2, BUN 17, creatinine 1.03. IMPRESSION: 1. Post-acute bilateral pulmonary embolism with mechanical thrombectomy 2. Evidence of RV dilatation and pulmonary hypertension 3. Chronic tobacco use 4. Prior history of DVT PLAN: 1. Stop heparin and start Eliquis 2. Repeat limited echo to evaluate right ventricular systolic function 3. Transfer to telemetry 4. If stable probable discharge in 24 hours Objective - Vital Signs Vital signs: Vital Signs Temp 97.4 F L 06/18/22 00:00 Pulse 96 06/18/22 07:00 Resp 19 06/18/22 07:00 BP 119/57 06/18/22 06:00 Pulse Ox 90 L 06/18/22 07:00 FiO2 Intake & Output 06/17/22 06/18/22 06/18/22 18:59 06:59 18:59 Intake Total 400 812.997 5 Output Total 825 450 Balance -425 362.997 5 Weight 144 kg 145 kg Intake: IV 400 60 5 Sodium Chloride 0.9% 1, 300 60 5 000 ml @ 75 mls/hr IV . [id number] [facility] Rx#:[id number] Intake, IV Titration 182.997 Amount Heparin Sod,Pork in 0.45% 182.997 NaCl 25,000 unit In 0.45 % NaCl 1 250ml.bag @ 15. 972 UNITS/KG/HR 23 mls/hr IV .[id number] [facility] Rx#: [id number] Oral 570 Output: Urine 825 450 Other: Voiding Method Urinal Urinal - Labs CBC & Chem 7: 06/18/22 03:55 06/18/22 03:55 Labs: Abnormal Lab Results - Last 24 Hours (Table) 06/17/22 06/17/22 06/17/22 Range/Units 07:42 07:42 07:42 WBC 14.7 H (3.8-10.6) k/uL Neutrophils # 11.9 H (1.3-7.7) k/uL PT (9.0-12.0) sec INR (<1.2) APTT (22.0-30.0) sec D-Dimer 23.80 H (<0.60) mg/L FEU Sodium (137-145) mmol/L Chloride 108 H (98-107) mmol/L Carbon Dioxide 19 L (22-30) mmol/L Glucose 157 H (74-99) mg/dL Total Bilirubin 1.7 H (0.2-1.3) mg/dL Troponin I (0.000-0.034) ng/mL 06/17/22 06/17/22 06/17/22 Range/Units 07:42 15:49 15:49 WBC (3.8-10.6) k/uL Neutrophils # (1.3-7.7) k/uL PT 12.6 H (9.0-12.0) sec INR 1.2 H (<1.2) APTT 33.7 H (22.0-30.0) sec D-Dimer (<0.60) mg/L FEU Sodium (137-145) mmol/L Chloride (98-107) mmol/L Carbon Dioxide 19 L (22-30) mmol/L Glucose 107 H (74-99) mg/dL Total Bilirubin (0.2-1.3) mg/dL Troponin I 0.254 H* (0.000-0.034) ng/mL 06/17/22 06/17/22 06/18/22 Range/Units 15:49 22:34 03:55 WBC 13.3 H 13.5 H (3.8-10.6) k/uL Neutrophils # 10.5 H 9.6 H (1.3-7.7) k/uL PT (9.0-12.0) sec INR (<1.2) APTT 40.7 H (22.0-30.0) sec D-Dimer (<0.60) mg/L FEU Sodium (137-145) mmol/L Chloride (98-107) mmol/L Carbon Dioxide (22-30) mmol/L Glucose (74-99) mg/dL Total Bilirubin (0.2-1.3) mg/dL Troponin I (0.000-0.034) ng/mL 06/18/22 06/18/22 Range/Units 03:55 03:55 WBC (3.8-10.6) k/uL Neutrophils # (1.3-7.7) k/uL PT (9.0-12.0) sec INR (<1.2) APTT 65.3 H (22.0-30.0) sec D-Dimer (<0.60) mg/L FEU Sodium 136 L (137-145) mmol/L Chloride 108 H (98-107) mmol/L Carbon Dioxide 20 L (22-30) mmol/L Glucose 119 H (74-99) mg/dL Total Bilirubin (0.2-1.3) mg/dL Troponin I (0.000-0.034) ng/mL
--- NOTE | 2022-06-18 08:37 | P.PN ---
Subjective Progress Note Date: 06/18/22 66-year-old male seen in the intensive care unit, for shortness of breath. He was initially evaluated in the emergency room, on June 17, by Dr. Leonid Jade. The patient came into the emergency room complaining of 2 days worth of increasing shortness of breath, while working out in the yard. The patient also admitted to some chest pressure, in the center of his chest. He denied any fever or chills. He denied any cough or phlegm production. The patient apparently takes no medications at home, and has no significant past medical history. He's had an appendectomy and hernia surgery in the past. He does smoke cigarettes on a regular basis. No illicit drug use, and occasional alcohol use. Laboratory data includes a white count of 14.7, with a normal hemoglobin, hematocrit, and platelet count. His d-dimer was nearly 24. Sodium 138, potassium 4.5, chlorides 108, CO2 19, anion gap 11, BUN 19, creatinine 1.06. Glucose was 157. The patient's troponin was 0.254. Testing for coronavirus was negative. Chest x-ray was normal to my eye. Dopplers of the lower extremities revealed a left DVT in the common femoral vein. CT angiogram revealed bilateral pulmonary emboli, with evidence of right heart strain. .on today's evaluation of 06/18/2022, the patient is still having some shortness of breath with minimal amount of activity . Note the patient had submassive pulmonary embolism with evidence of RV strain and a left lower extremity DVT. Based on that, the patient underwent a catheter directed aspiration of pulmonary embolism using the INARI system. The patient is currently on oxygen at 15 L Ventimask and the patient's current pulse ox is 92%. I reviewed the CT angiogram and the patient had evidence of bilateral pulmonary emboli extending to the lobar and segmental and subsegmental branches. There was also evidence of pulmonary infarct in the right upper lobe. There was evidence of RV strain. Echocardiogram was also completed on 06/07/2022 and it showed moderate pulmonary hypertension/severe pulmonary hypertension with severe RV dilatation. The left ejection fraction was 45-50%. Or now, the patient is on anticoagulation with Eliquis that was started a dose of 10 mg by mouth twice a day. Previous echoes at 13.5 with hemoglobin 16.2. Sodium is at 136, BUN is at 70 with a creatinine of 1.03. Troponin peaked at 0.25. Noted the patient had some initial imp rovement and earlier this morning he was on 4 L of Oxymizer nasal cannula. After doing some activity, he became tachycardic and more hypoxic and was placed on 15 L Ventimask. He is currently in some sinus tachycardia. Objective - Vital Signs Vital signs: Vital Signs Temp 97.4 F L 06/18/22 00:00 Pulse 96 06/18/22 07:00 Resp 19 06/18/22 07:00 BP 119/57 06/18/22 06:00 Pulse Ox 92 L 06/18/22 08:15 FiO2 60 06/18/22 08:15 Intake & Output 06/17/22 06/18/22 06/18/22 18:59 06:59 18:59 Intake Total 400 812.997 5 Output Total 825 450 Balance -425 362.997 5 Weight 144 kg 145 kg Intake: IV 400 60 5 Sodium Chloride 0.9% 1, 300 60 5 000 ml @ 75 mls/hr IV . [id number] SHANNAN Rx#:[id number] Intake, IV Titration 182.997 Amount Heparin Sod,Pork in 0.45% 182.997 NaCl 25,000 unit In 0.45 % NaCl 1 250ml.bag @ 15. 972 UNITS/KG/HR 23 mls/hr IV .[id number] SHANNAN Rx#: [id number] Oral 570 Output: Urine 825 450 Other: Voiding Method Urinal Urinal - Exam No acute distress, oriented 3. Patient is currently on 15 L Ventimask with a pulse ox of 92%. No conversational dyspnea or use of accessory muscles. HEENT examination is grossly unremarkable. Neck supple. Full range of motion. No adenopathy thyromegaly or neck vein distention. Cardiovascular examination reveals regular rhythm rate. S1-S2 normal. No S3 or S4. No discernible murmur noted. Lungs reveal mostly clear breath sounds. Minimal rhonchi noted. No wheezes or crackles. Breath sounds are equal bilaterally. Abdomen soft bowel sounds are heard. No masses or tenderness. Extremities are intact. No cyanosis clubbing or edema. Left leg tenderness on palpation. Skin is without rash or lesion. Neurologic examination is brief but nonfocal. - Labs CBC & Chem 7: 06/18/22 03:55 06/18/22 03:55 Labs: Abnormal Lab Results - Last 24 Hours (Table) 06/17/22 06/17/22 06/17/22 Range/Units 07:42 07:42 15:49 WBC (3.8-10.6) k/uL Neutrophils # (1.3-7.7) k/uL PT 12.6 H (9.0-12.0) sec INR 1.2 H (<1.2) APTT 33.7 H (22.0-30.0) sec D-Dimer 23.80 H (<0.60) mg/L FEU Sodium (137-145) mmol/L Chloride (98-107) mmol/L Carbon Dioxide (22-30) mmol/L Glucose (74-99) mg/dL Troponin I 0.254 H* (0.000-0.034) ng/mL 06/17/22 06/17/22 06/17/22 Range/Units 15:49 15:49 22:34 WBC 13.3 H (3.8-10.6) k/uL Neutrophils # 10.5 H (1.3-7.7) k/uL PT (9.0-12.0) sec INR (<1.2) APTT 40.7 H (22.0-30.0) sec D-Dimer (<0.60) mg/L FEU Sodium (137-145) mmol/L Chloride (98-107) mmol/L Carbon Dioxide 19 L (22-30) mmol/L Glucose 107 H (74-99) mg/dL Troponin I (0.000-0.034) ng/mL 06/18/22 06/18/22 06/18/22 Range/Units 03:55 03:55 03:55 WBC 13.5 H (3.8-10.6) k/uL Neutrophils # 9.6 H (1.3-7.7) k/uL PT (9.0-12.0) sec INR (<1.2) APTT 65.3 H (22.0-30.0) sec D-Dimer (<0.60) mg/L FEU Sodium 136 L (137-145) mmol/L Chloride 108 H (98-107) mmol/L Carbon Dioxide 20 L (22-30) mmol/L Glucose 119 H (74-99) mg/dL Troponin I (0.000-0.034) ng/mL Assessment and Plan Plan: Acute hypoxemic respiratory failure secondary to acute bilateral pulmonary embolism, with right heart strain. The patient presented with a left lower extremity DVT and extensive pulmonary embolism with heavy clot burden and the patient had a submassive pulmonary embolism, high risk with evidence of RV strain and elevated troponin. Based on that, the patient received catheter directed thrombectomy/INARI. The patient is hemodynamically stable. The patient had improvement in oxygenation with subsequent decompensation currently is on 15 L Ventimask. History of left DVT. 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 Plan Wean down FiO2 as tolerated Continue to cognition with Eliquis 10 mg by mouth twice a day Monitor hematologic profile Keep the patient ICU for today CT angiogram of the chest and echocardiogram was noted We'll continue to follow. This was a recurrence event and the patient would likely need long-term anticoagulation especially with his extensive pulmonary embolism Repeat chest x-ray We'll continue to follow
[2022-06-18] MEDS ORDERED: APIXABAN 5 MG TAB PO SCH (09:00)
--- NOTE | 2022-06-18 09:27 | XR ---
EXAMINATION TYPE: XR chest 1V portable DATE OF EXAM: 06/18/2022 COMPARISON: 06/17/2022 HISTORY: Increased O2 demand TECHNIQUE: Single frontal view of the chest is obtained. FINDINGS: The heart size is normal. The cardia mediastinal silhouette and pulmonary vasculature are within normal limits. There is no focal consolidation, significant pleural effusion, or pneumothorax. IMPRESSION: No acute cardiopulmonary process.
[2022-06-18] MEDS: ATORVASTATIN 40 MG TAB PO SCH (09:29)
[2022-06-18] MEDS: PANTOPRAZOLE 40 MG/10 ML VIAL IV SCH (09:29)
[2022-06-18] MEDS: NICOTINE 21MG/24HR PATCH TRANSDERM SCH (09:29)
--- NOTE | 2022-06-18 11:52 | CA ---
Transthoracic Echo Report Name: Sam Mayfield Age: 66 Gender: M : 1955 Exam Date: 06/18/2022 10:13 Exam Location: [place] Echo Ht (in): 76 Wt (lb): 319 Ordering Physician: Tucker Rm MD ([id number]) Attending/Referring Phys: [employer] Console Operator Track Vale Sinha RDCS Procedure CPT: Indications: PE Cardiac Hx: limited study Technical Quality: Fair Contrast 1: Total Dose (mL): Contrast 2: Total Dose (mL): MEASUREMENTS (Male / Female) Normal Values FINDINGS Left Ventricle Left ventricular ejection fraction is estimated at 55-60 %. Right Ventricle Severely reduced right ventricular global systolic function. Right Atrium Left Atrium Mitral Valve Aortic Valve Tricuspid Valve Pulmonic Valve Pericardium Normal pericardium. No pericardial effusion. Aorta CONCLUSIONS Right ventricular size and systolic function are unchanged Previewed by: Dr. Babar Moreno MD (Electronically Signed) Final Date: 18 June 2022 11:51
--- NOTE | 2022-06-18 12:33 | P.PN ---
Subjective Progress Note Date: 06/18/22 Hospital Course: 66-year-old male with history of tobacco smoking presents the ED for p rogressively worsening shortness of breath over the past 2-3 days. In the ED, he was noted to have a respiratory rate of 28, pulse of 128 and O2 saturation of 90% on room air. CBC showed leukocytosis of 14.7. Coagulation panel was within normal limits. D-dimer elevated at 23.8. CMP showed chloride 108, bicarb 19, glucose 157, total bilirubin of 1.7. Troponin was 0.254. BNP was 940. COVID-19 negative. EKG showed atrial tachycardia with ventricular rate of 126. Chest x-ray was negative. CTA chest showed bilateral pulmonary emboli with evidence of right heart strain. Venous Doppler showed positive DVT from the common femoral vein to the popliteal vein of the left leg. Patient started on a heparin drip. He underwent thrombectomy and was admitted to ICU. Patient has now been transitioned to [facility]. Subjective: Patient seen and examined at bedside. No acute events overnight. However, this morning while ambulating patient became hypoxic and tachycardic, was placed back on oxygen. He denies any chest pain, palpitations, abdominal pain, nausea, vomiting, urinary or bowel complaints. Pertinent positives and negatives as discussed above, a complete review of systems was performed and all other systems are negative. Vitals Signs Reviewed. General: nontoxic, no distress, appears at stated age, morbidly obese Derm: warm, dry Head: atraumatic, normocephalic, symmetric Eyes: EOMI, no lid lag, anicteric sclera Mouth: no lip lesion, mucus membranes moist Cardiovascular: S1S2 reg, tachycardic, no murmur Lungs: CTA bilateral, no rhonchi, no rales , no accessory muscle use, supplemental oxygen Abdominal: soft, nontender to palpation, no guarding, no appreciable org anomegaly Ext: no gross muscle atrophy, no edema, no contractures Neuro: CN II-XI grossly intact, no focal neuro deficits Psych: Alert, oriented, appropriate affect Data Reviewed Today: Pertinent Labs: WBC 13.5, hemoglobin 16.2, sodium 136, potassium 4.2, bicarb 20, creatinine 1.03, blood sugars 119 Imaging: Chest x-ray personally interpreted, shows no acute process. Repeat echocardiogram unchanged RV size and systolic function Assessment and Plan: Active: Acute submassive saddle pulmonary embolism status post mechanical thrombectomy Acute hypoxic respiratory failure Acute left leg DVT Pulmonary hypertension History of DVT, unprovoked Leukocytosis, likely reactive Non-anion gap metabolic acidosis -Cardiology note reviewed, IV heparin stopped, patient started on Eliquis -Pulmonology note reviewed, likely need lifelong anticoagulation -Continue to wean oxygen -Repeat CBC and BMP tomorrow Chronic: Tobacco use Dyslipidemia DVT ppx: Eliquis Code status: Full code Anticipated discharge place: Home Anticipated discharge time: 1-2 days Objective - Vital Signs Vital signs: Vital Signs Temp 97.4 F L 06/18/22 00:00 Pulse 120 H 06/18/22 12:00 Resp 28 H 06/18/22 12:00 BP 130/81 06/18/22 12:00 Pulse Ox 91 L 06/18/22 12:00 FiO2 60 06/18/22 12:00 Intake & Output 06/17/22 06/18/22 06/18/22 18:59 06:59 18:59 Intake Total 400 812.997 205 Output Total 825 450 350 Balance -425 362.997 -145 Weight 144 kg 145 kg Intake: IV 400 60 5 Sodium Chloride 0.9% 1, 300 60 5 000 ml @ 75 mls/hr IV . [id number] SHANNAN Rx#:[id number] Intake, IV Titration 182.997 Amount Heparin Sod,Pork in 0.45% 182.997 NaCl 25,000 unit In 0.45 % NaCl 1 250ml.bag @ 15. 972 UNITS/KG/HR 23 mls/hr IV .[id number] SHANNAN Rx#: [id number] Oral 570 200 Output: Urine 825 450 350 Other: Voiding Method Urinal Urinal Urinal # Voids 1 - Labs CBC & Chem 7: 06/18/22 03:55 06/18/22 03:55 Labs: Abnormal Lab Results - Last 24 Hours (Table) 06/17/22 06/17/22 06/17/22 Range/Units 15:49 15:49 15:49 WBC 13.3 H (3.8-10.6) k/uL Neutrophils # 10.5 H (1.3-7.7) k/uL PT 12.6 H (9.0-12.0) sec INR 1.2 H (<1.2) APTT 33.7 H (22.0-30.0) sec Sodium (137-145) mmol/L Chloride (98-107) mmol/L Carbon Dioxide 19 L (22-30) mmol/L Glucose 107 H (74-99) mg/dL 06/17/22 06/18/22 06/18/22 Range/Units 22:34 03:55 03:55 WBC 13.5 H (3.8-10.6) k/uL Neutrophils # 9.6 H (1.3-7.7) k/uL PT (9.0-12.0) sec INR (<1.2) APTT 40.7 H (22.0-30.0) sec Sodium 136 L (137-145) mmol/L Chloride 108 H (98-107) mmol/L Carbon Dioxide 20 L (22-30) mmol/L Glucose 119 H (74-99) mg/dL 06/18/22 Range/Units 03:55 WBC (3.8-10.6) k/uL Neutrophils # (1.3-7.7) k/uL PT (9.0-12.0) sec INR (<1.2) APTT 65.3 H (22.0-30.0) sec Sodium (137-145) mmol/L Chloride (98-107) mmol/L Carbon Dioxide (22-30) mmol/L Glucose (74-99) mg/dL
[2022-06-18] MEDS ORDERED: HEPARIN SODIUM 1,000 UN/ML (10ML VL) IV PRN (17:24)
--- NOTE | 2022-06-18 19:02 | P.GSCN ---
History of Present Illness Consult date: 06/18/22 Reason for Consult: Possible IVC filter History of present illness: 66 year old gentleman presented with shortness of breath, was found to have lower extremity DVT and bilateral PE and underwent percutaneous thrombectomy and did well day 1. He then was transitioned to oral anticoagulation, got up to go to the bathroom and had worsening severe shortness of breath. He went from room air after the procedure to a venti mask and 15L oxygen to maintain O2 sats above 90%. We are consulted for possible clot in transit and possible IVC filter placement. Currently he feels better with the Venti mask and decreases to 85% when on room air. He denies any other symptoms at this time except for pain behind the left knee. Review of Systems All systems: negative (what is mentioned in the PMH or HPI) Past Medical History Past Medical History: No Reported History History of Any Multi-Drug Resistant Organisms: None Reported Past Surgical History: Appendectomy, Hernia Repair Past Anesthesia/Blood Transfusion Reactions: No Reported Reaction Past Psychological History: No Psychological Hx Reported Smoking Status: Current every day smoker Past Alcohol Use History: Occasional Past Drug Use History: None Reported - Past Family History Father Family Medical History: Hypertension Additional Family Medical History / Comment(s): of prostate CA Medications and Allergies Home Medications Medication Instructions Recorded Confirmed Type No Known Home Medications 06/17/22 06/17/22 History Allergies Allergy/AdvReac Type Severity Reaction Status Date / Time No Known Allergies Allergy Verified 06/17/22 10:02 Surgical - Exam Vital Signs Pulse Resp BP Pulse Ox 128 H 28 H 121/81 90 L 06/17/22 07:29 06/17/22 07:29 06/17/22 07:29 06/17/22 07:29 - General well developed, well nourished, no distress - Eyes PERRL, normal ocular movement - ENT normal pinna, normal nares - Neck no masses - Respiratory some retractions when off mask Tachypnic - Cardiovascular tachycardic - Abdomen Abdomen: soft, non tender - Integumentary no rash, no growths - Neurologic normal coordination, normal sensation - Psychiatric oriented to time, oriented to person, oriented to place, speech is normal varicose veins bilaterally tenderness of the left calf Results - Labs 06/18/22 03:55 06/18/22 03:55 Abnormal Lab Results - Last 24 Hours (Table) 06/17/22 06/18/22 06/18/22 Range/Units 22:34 03:55 03:55 WBC 13.5 H (3.8-10.6) k/uL Neutrophils # 9.6 H (1.3-7.7) k/uL APTT 40.7 H (22.0-30.0) sec Sodium 136 L (137-145) mmol/L Chloride 108 H (98-107) mmol/L Carbon Dioxide 20 L (22-30) mmol/L Glucose 119 H (74-99) mg/dL 06/18/22 Range/Units 03:55 WBC (3.8-10.6) k/uL Neutrophils # (1.3-7.7) k/uL APTT 65.3 H (22.0-30.0) sec Sodium (137-145) mmol/L Chloride (98-107) mmol/L Carbon Dioxide (22-30) mmol/L Glucose (74-99) mg/dL Diabetes panel 06/18/22 Range/Units 03:55 Sodium 136 L (137-145) mmol/L Potassium 4.2 (3.5-5.1) mmol/L Chloride 108 H (98-107) mmol/L Carbon Dioxide 20 L (22-30) mmol/L BUN 17 (9-20) mg/dL Creatinine 1.03 (0.66-1.25) mg/dL Glucose 119 H (74-99) mg/dL Calcium 8.5 (8.4-10.2) mg/dL Calcium panel 06/18/22 Range/Units 03:55 Calcium 8.5 (8.4-10.2) mg/dL Pituitary panel 06/18/22 Range/Units 03:55 Sodium 136 L (137-145) mmol/L Potassium 4.2 (3.5-5.1) mmol/L Chloride 108 H (98-107) mmol/L Carbon Dioxide 20 L (22-30) mmol/L BUN 17 (9-20) mg/dL Creatinine 1.03 (0.66-1.25) mg/dL Glucose 119 H (74-99) mg/dL Calcium 8.5 (8.4-10.2) mg/dL Adrenal panel 06/18/22 Range/Units 03:55 Sodium 136 L (137-145) mmol/L Potassium 4.2 (3.5-5.1) mmol/L Chloride 108 H (98-107) mmol/L Carbon Dioxide 20 L (22-30) mmol/L BUN 17 (9-20) mg/dL Creatinine 1.03 (0.66-1.25) mg/dL Glucose 119 H (74-99) mg/dL Calcium 8.5 (8.4-10.2) mg/dL - Imaging Comments: CTA chest reviewed Assessment and Plan Assessment: 1. Acute bilateral PE s/p thrombectomy 2. Acute respiratory failure 3. Left lower extremity DVT 4. Obesity 5. Right heart strain Plan: Discussed with family and patient about possible treatment plan. Recommend re-starting heparin drip CTA chest in the morning to determine if new clot noted. If significant burden with worsening symptoms then may require re-intervention and possible IVC filter if determined anticoagulation failure and prevent any further clot in transit. Discussed with ICU team who agrees. Thank you for the consultation.
[2022-06-19] MEDS: HEPARIN SOD,PORK IN 0.45% NACL 25,000 UNIT in 0.45% NACL 1 250ML.BAG IV SCH ×3 (04:22→20:13)
--- NOTE | 2022-06-19 07:23 | CT ---
EXAMINATION TYPE: CT chest angio for PE CT DLP: 853.6 mGycm, Automated exposure control for dose reduction was used. DATE OF EXAM: 06/19/2022 6:45 AM COMPARISON: 06/17/2022 CLINICAL INDICATION:Male, 66 years old with history of suspect PE; Suspected PE TECHNIQUE/CONTRAST: CTA scan of the thorax is performed with IV Contrast, patient injected with 100 mL of Isovue 370, pul monary embolism protocol. MIP images are created and reviewed these [facility] FINDINGS: Pulmonary Artery: Bilateral pulmonary emboli involving the right and left pulmonary arteries extendin g into the lobar, segmental and subsegmental branches. There is flattening of the interventricular se ptum with reflux of contrast into the IVC. RV:LV = 1.4 which could be decreased secondary to phase of cardiac cycle. The pulmonary trunk measures 3.1 Cm. Lungs/Pleura: Groundglass opacity in the right midlung has resolved. There is motion artifact. Bureau Director ior dependent atelectasis. Airway: Large airways are patent. Heart: Heart is within normal limits for size. Vasculature: No evidence of aortic aneurysm. Mediastinum: No gross evidence of adenopathy. Musculoskeletal: No acute osseous abnormalities, multilevel disc degeneration changes with bridging s yndesmophytes compatible with diffuse idiopathic skeletal hyperostosis. Soft Tissues: Unremarkable. Lower neck: No significant findings. Upper Abdomen: No significant findings. IMPRESSION: 1. No significant change in bilateral pulmonary emboli extending into the lobar, segmental and subse gmental branches. There remains evidence of right heart strain. 2. The central right upper lung ground glass opacity has resolved suggesting atelectasis on prior. 3. Evidence of pulmonary hypertension.
--- NOTE | 2022-06-19 07:51 | P.PN ---
Subjective Progress Note Date: 06/19/22 PROGRESS NOTE The patient is a 66-year-old male with a prior history of DVT who presented with acute dyspnea and was found to have acute pulmonary embolism. He was not on anticoagulation on presentation. He has a history of chronic tobacco use. His echocardiogram showed dilatation of the RV side with decreased systolic function and evidence of pulmonary hypertension. He underwent thrombectomy with removal of large thrombotic material. He is feeling much better, on room air. He denies any chest discomfort, dizziness or palpitations. He continues to be on IV heparin. He is in sinus mechanism and hemodynamically stable. He had evidence of DVT on the left side June 19: Yesterday morning patient became acutely more dyspneic, tachypnea, hypoxic and tachycardic highly suggestive of a new pulmonary embolism moving from his DVT. He was started back on IV heparin. A computed tomography scan was done this morning and showed evidence of bilateral pulmonary embolism was evidence of right heart strain. He's feeling much better this morning, his sinus tachycardia resolved and he is on nasal cannula with O2 sat of 94. He is not tachypneic. He denies any chest discomfort, dizziness or palpitations. He denies any nausea. His blood pressure is stable. He was seen by vascular surgery for possible IVC filter because of the recurrent pulmonary embolism and history of prior DVT. Medications: IV heparin, Lipitor 40 mg daily. PHYSICAL EXAMINATION: Blood pressure 114/70 heart rate 98 LUNGS: Clear to auscultation HEART: Regular rate and rhythm, S1, S2. No S3. systolic ejection murmur at the base ABDOMEN: Soft, nontender, no organomegaly EXTREMETIES: Trace bilateral edema with more on the left side, right groin no hematoma LAB: Pending IMPRESSION: 1. Post-acute bilateral pulmonary embolism with mechanical thrombectomy with possible recurrent embolism yesterday morning 2. Evidence of RV dilatation and pulmonary hypertension 3. Chronic tobacco use 4. Prior history of DVT PLAN: 1. Continue IV heparin for now 2. Await the input of vascular surgery regarding IVC filter 3. I see no clear indication for further thrombectomy at this time since the patient is hemodynamically stable and his hypoxia and tachypnea improved. Objective - Vital Signs Vital signs: Vital Signs Temp 97.6 F 06/19/22 04:00 Pulse 98 06/19/22 07:00 Resp 16 06/19/22 07:00 BP 114/74 06/19/22 07:00 Pulse Ox 99 06/19/22 07:00 FiO2 50 06/19/22 03:22 Intake & Output 06/18/22 06/19/22 06/19/22 18:59 06:59 18:59 Intake Total 205 248.961 Output Total 850 850 0 Balance -645 -601.039 0 Weight 143.6 kg Intake: IV 5 Sodium Chloride 0.9% 1, 5 000 ml @ 75 mls/hr IV . [id number] SHANNAN Rx#:[id number] Intake, IV Titration 248.961 Amount Heparin Sod,Pork in 0.45% 248.961 NaCl 25,000 unit In 0.45 % NaCl 1 250ml.bag @ 15. 36 UNITS/KG/HR 22.272 mls /hr IV .[id number] SHANNAN Rx#: [id number] Oral 200 Output: Urine 850 850 0 Other: Voiding Method Urinal Urinal # Voids 1 - Labs CBC & Chem 7: 06/18/22 03:55 06/18/22 03:55 Labs: Abnormal Lab Results - Last 24 Hours (Table) 06/18/22 Range/Units 23:36 APTT 42.8 H (22.0-30.0) sec
[2022-06-19 08:04] LABS: HCT 46.3 % (39.0-53.0); HGB 15.6 gm/dL (13.0-17.5); MCHC 33.6 g/dL (31.0-37.0); MCV 89.4 fL (80.0-100.0); Mean Platelet Volume 7.6; Platelet Count 187 k/uL (150-450); RBC 5.19 m/uL (4.30-5.90); RDW 13.8 % (11.5-15.5); WBC 13.6 k/uL (3.8-10.6)
[2022-06-19 08:26] LABS: Calcium 8.7 mg/dL (8.4-10.2); Potassium 4.3 mmol/L (3.5-5.1)
[2022-06-19] MEDS: NICOTINE 21MG/24HR PATCH TRANSDERM SCH (09:04)
[2022-06-19] MEDS: ATORVASTATIN 40 MG TAB PO SCH (09:04)
[2022-06-19] MEDS: PANTOPRAZOLE 40 MG/10 ML VIAL IV SCH (09:04)
--- NOTE | 2022-06-19 09:35 | P.PN ---
Subjective Progress Note Date: 06/19/22 66-year-old male seen in the intensive care unit, for shortness of breath. He was initially evaluated in the emergency room, on June 17, by Dr. Leonid Jade. The patient came into the emergency room complaining of 2 days worth of increasing shortness of breath, while working out in the yard. The patient also admitted to some chest pressure, in the center of his chest. He denied any fever or chills. He denied any cough or phlegm production. The patient apparently takes no medications at home, and has no significant past medical history. He's had an appendectomy and hernia surgery in the past. He does smoke cigarettes on a regular basis. No illicit drug use, and occasional alcohol use. Laboratory data includes a white count of 14.7, with a normal hemoglobin, hematocrit, and platelet count. His d-dimer was nearly 24. Sodium 138, potassium 4.5, chlorides 108, CO2 19, anion gap 11, BUN 19, creatinine 1.06. Glucose was 157. The patient's troponin was 0.254. Testing for coronavirus was negative. Chest x-ray was normal to my eye. Dopplers of the lower extremities revealed a left DVT in the common femoral vein. CT angiogram revealed bilateral pulmonary emboli, with evidence of right heart strain. .on today's evaluation of 06/18/2022, the patient is still having some shortness of breath with minimal amount of activity . Note the patient had submassive pulmonary embolism with evidence of RV strain and a left lower extremity DVT. Based on that, the patient underwent a catheter directed aspiration of pulmonary embolism using the INARI system. The patient is currently on oxygen at 15 L Ventimask and the patient's current pulse ox is 92%. I reviewed the CT angiogram and the patient had evidence of bilateral pulmonary emboli extending to the lobar and segmental and subsegmental branches. There was also evidence of pulmonary infarct in the right upper lobe. There was evidence of RV strain. Echocardiogram was also completed on 06/07/2022 and it showed moderate pulmonary hypertension/severe pulmonary hypertension with severe RV dilatation. The left ejection fraction was 45-50%. Or now, the patient is on anticoagulation with Eliquis that was started a dose of 10 mg by mouth twice a day. Previous echoes at 13.5 with hemoglobin 16.2. Sodium is at 136, BUN is at 70 with a creatinine of 1.03. Troponin peaked at 0.25. Noted the patient had some initial imp rovement and earlier this morning he was on 4 L of Oxymizer nasal cannula. After doing some activity, he became tachycardic and more hypoxic and was placed on 15 L Ventimask. He is currently in some sinus tachycardia. On 06/19/2022, the patient is looking much better. After some interval decompe nsation yesterday and tachycardia and worsening in oxygenation shortness of breath, the patient gradually improved and this morning he is on oxygen at X liters. His tachycardia is very much improved his heart rate is currently down to 96. His pulse oxing 98% on 6 L of oxygen by nasal cannula. As mentioned earlier, the patient had massive pulmonary embolism. His echocardiogram showed severe RV dilation and pulmonary hypertension. He was being placed on Eliquis and I had to put him on IV heparin in anticipation for further intervention should his condition decompensated. However, the patient remained adequately stable on IV heparin. His PTT currently is a 54. Hemoglobin stable at 15.6. The lungs noted at 13.6. BUN is 22 with a creatinine of 1.3 and a sodium level of 138. Because of the extent of the problem and the underlying hemodynamic instability, we decided to proceed with a IVC filter placement after having a lengthy discussion with the vascular surgeons and cardiology. Objective - Vital Signs Vital signs: Vital Signs Temp 97.6 F 06/19/22 04:00 Pulse 98 06/19/22 07:00 Resp 16 06/19/22 07:00 BP 114/74 06/19/22 07:00 Pulse Ox 99 06/19/22 07:00 FiO2 50 06/19/22 03:22 Intake & Output 06/18/22 06/19/22 06/19/22 18:59 06:59 18:59 Intake Total 205 248.961 Output Total 850 850 0 Balance -645 -601.039 0 Weight 143.6 kg Intake: IV 5 Sodium Chloride 0.9% 1, 5 000 ml @ 75 mls/hr IV . [id number] [facility] Rx#:[id number] Intake, IV Titration 248.961 Amount Heparin Sod,Pork in 0.45% 248.961 NaCl 25,000 unit In 0.45 % NaCl 1 250ml.bag @ 15. 36 UNITS/KG/HR 22.272 mls /hr IV .[id number] [facility] Rx#: [id number] Oral 200 Output: Urine 850 850 0 Other: Voiding Method Urinal Urinal # Voids 1 - Exam No acute distress, oriented 3. Patient is currently on 6 L of oxygen by nasal cannula the breathing is nonlabored HEENT examination is grossly unremarkable. Neck supple. Full range of motion. No adenopathy thyromegaly or neck vein distention. Cardiovascular examination reveals regular rhythm rate. S1-S2 normal. No S3 or S4. No discernible murmur noted. Lungs reveal mostly clear breath sounds. Minimal rhonchi noted. No wheezes or crackles. Breath sounds are equal bilaterally. Abdomen soft bowel sounds are heard. No masses or tenderness. Extremities are intact. No cyanosis clubbing or edema. Left leg tenderness on palpation. Skin is without rash or lesion. Neurologic examination is brief but nonfocal. - Labs CBC & Chem 7: 06/19/22 07:51 06/19/22 07:51 Labs: Abnormal Lab Results - Last 24 Hours (Table) 06/18/22 06/19/22 06/19/22 Range/Units 23:36 07:51 07:51 WBC 13.6 H (3.8-10.6) k/uL APTT 42.8 H (22.0-30.0) sec BUN 22 H (9-20) mg/dL Creatinine 1.31 H (0.66-1.25) mg/dL Glucose 123 H (74-99) mg/dL 06/19/22 Range/Units 07:51 WBC (3.8-10.6) k/uL APTT 54.3 H (22.0-30.0) sec BUN (9-20) mg/dL Creatinine (0.66-1.25) mg/dL Glucose (74-99) mg/dL Assessment and Plan Plan: Acute hypoxemic respiratory failure secondary to acute bilateral pulmonary embo lism, with right heart strain. The patient presented with a left lower extremity DVT and extensive pulmonary embolism with heavy clot burden and the patient had a submassive pulmonary embolism, high risk with evidence of RV strain and elevated troponin. Based on that, the patient received catheter directed thrombectomy/INARI. The patient is hemodynamically stable. The patient had improvement in oxygenation with subsequent decompensation currently is on 15 L Ventimask. On today's evaluation and after some decompensation, the patient is feeling better and currently is on 6 L O2 nasal cannula and his tachycardia is also improved. The patient is being set up for IVC filter placement. The patient is currently on IV heparin. History of left DVT. 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 Plan Wean down FiO2 as tolerated, currently on 6 L Continue IV heparin Monitor hematologic profile Keep the patient ICU for today IVC filter placement today Monitor renal function and the patient has a slight rise in the creatinine was up to 1.3 We'll continue to follow. Repeat chest x-ray from yesterday was within normal limits We'll continue to follow
--- NOTE | 2022-06-19 10:38 | P.PN ---
Subjective Progress Note Date: 06/19/22 Hospital Course: 66-year-old male with history of tobacco smoking presents the ED for pro gressively worsening shortness of breath over the past 2-3 days. In the ED, he was noted to have a respiratory rate of 28, pulse of 128 and O2 saturation of 90% on room air. CBC showed leukocytosis of 14.7. Coagulation panel was within normal limits. D-dimer elevated at 23.8. CMP showed chloride 108, bicarb 19, glucose 157, total bilirubin of 1.7. Troponin was 0.254. BNP was 940. COVID- 19 negative. EKG showed atrial tachycardia with ventricular rate of 126. Chest x-ray was negative. CTA chest showed bilateral pulmonary emboli with evidence of right heart strain. Venous Doppler showed positive DVT from the common femoral vein to the popliteal vein of the left leg. Patient started on a heparin drip. He underwent thrombectomy and was admitted to ICU. Echocardiogram showed severely reduced RV systolic function, normal LV EF of 55- 60%. Due to concerns for further decompensation, patient remained on IV heparin. Vascular surgery was consulted for IVC filter placement. Subjective: Patient seen and examined at bedside. No acute events overnight. He claims that he's feeling a lot better compared to when he first came in. His shortness of breath is improving. He denies any chest pain, palpitations, abdominal pain, nausea, vomiting, urinary or bowel complaints. Pertinent positives and negatives as discussed above, a complete review of systems was performed and all other systems are negative. Vitals Signs Reviewed. General: nontoxic, no distress, appears at stated age, morbidly obese Derm: warm, dry Head: atraumatic, normocephalic, symmetric Eyes: EOMI, no lid lag, anicteric sclera Mouth: no lip lesion, mucus membranes moist Cardiovascular: S1S2 reg, no murmur Lungs: CTA bilateral, no rhonchi, no rales , no accessory muscle use, supplemental oxygen Abdominal: soft, nontender to palpation, no guarding, no appreciable organomegaly Ext: no gross muscle atrophy, no edema, no contractures Neuro: CN II-XI grossly intact, no focal neuro deficits Psych: Alert, oriented, appropriate affect Data Reviewed Today: Pertinent Labs: WBC 13.6, hemoglobin 15.6, APTT 54.3, sodium 138, creatinine 1.31 Imaging: CT chest report reviewed, no significant change in bilateral pulmonary emboli extending into the lobar, segmental, subsegmental branches, there remains no evidence of right heart strain Assessment and Plan: Active: Acute submassive saddle pulmonary embolism status post mechanical thrombectomy Acute hypoxic respiratory failure Acute left leg DVT Pulmonary hypertension History of DVT, unprovoked Leukocytosis, likely reactive Nonoliguric, Acute kidney injury -Cardiology note reviewed, consider IVC filter -Pulmonology note reviewed, maintain patient on heparin drip, vascular surgery to place IVC filter -Currently on heparin drip, monitor based on APTT, daily CBC, no active bleeding -Continue to wean oxygen -Acute kidney injury likely ATN, possibly contrast-induced -Started on normal saline at 130 mL an hour -Repeat BMP tomorrow Resolved: Non-anion gap metabolic acidosis Chronic: Tobacco use Dyslipidemia DVT ppx: Heparin drip Code status: Full code Anticipated discharge place: Home Anticipated discharge time: Pending clinical course Objective - Vital Signs Vital signs: Vital Signs Temp 97.6 F 06/19/22 04:00 Pulse 98 06/19/22 07:00 Resp 16 06/19/22 07:00 BP 114/74 06/19/22 07:00 Pulse Ox 99 06/19/22 07:00 FiO2 50 06/19/22 03:22 Intake & Output 06/18/22 06/19/22 06/19/22 18:59 06:59 18:59 Intake Total 205 248.961 Output Total 850 850 0 Balance -645 -601.039 0 Weight 143.6 kg Intake: IV 5 Sodium Chloride 0.9% 1, 5 000 ml @ 75 mls/hr IV . [id number] [facility] Rx#:[id number] Intake, IV Titration 248.961 Amount Heparin Sod,Pork in 0.45% 248.961 NaCl 25,000 unit In 0.45 % NaCl 1 250ml.bag @ 15. 36 UNITS/KG/HR 22.272 mls /hr IV .[id number] [facility] Rx#: [id number] Oral 200 Output: Urine 850 850 0 Other: Voiding Method Urinal Urinal # Voids 1 - Labs CBC & Chem 7: 06/19/22 07:51 06/19/22 07:51 Labs: Abnormal Lab Results - Last 24 Hours (Table) 04/06/19/22 06/19/22 Range/Units 23:36 07:51 07:51 WBC 13.6 H (3.8-10.6) k/uL APTT 42.8 H (22.0-30.0) sec BUN 22 H (9-20) mg/dL Creatinine 1.31 H (0.66-1.25) mg/dL Glucose 123 H (74-99) mg/dL 06/19/22 Range/Units 07:51 WBC (3.8-10.6) k/uL APTT 54.3 H (22.0-30.0) sec BUN (9-20) mg/dL Creatinine (0.66-1.25) mg/dL Glucose (74-99) mg/dL
[2022-06-19] MEDS ORDERED: fentaNYL (PF) 50 MCG/ML 2 ML AMP ONE (11:04)
--- NOTE | 2022-06-19 11:06 | P.PN ---
Subjective Progress Note Date: 06/19/22 Principal diagnosis: Saddle Pulmonary embolism, left lower extremity DVT Patient was seen and examined today in the ICU Vascular surgery was consulted for possible IVC filter placement. Patient is currently on IV heparin drip. Repeat chest CTA was recommended and ordered that reported no significant change in bilateral pulmonary emboli extending into the lobar, segmental and subsegmental branches. Remains evidence of right heart strain. Central right upper lung groundglass opacity has resolved suggesting atelectasis on prior. Evidence of pulmonary hypertension. Patient states breathing is somewhat easier today. He has been nothing by mouth. He had a Ventimask at 15 L throughout the night. Objective - Vital Signs Vital signs: Vital Signs Temp 97.6 F 06/19/22 04:00 Pulse 98 06/19/22 07:00 Resp 16 06/19/22 07:00 BP 114/74 06/19/22 07:00 Pulse Ox 99 06/19/22 07:00 FiO2 50 06/19/22 03:22 Intake & Output 06/18/22 06/19/22 06/19/22 18:59 06:59 18:59 Intake Total 205 248.961 Output Total 850 850 0 Balance -645 -601.039 0 Weight 143.6 kg Intake: IV 5 Sodium Chloride 0.9% 1, 5 000 ml @ 75 mls/hr IV . [id number] [facility] Rx#:[id number] Intake, IV Titration 248.961 Amount Heparin Sod,Pork in 0.45% 248.961 NaCl 25,000 unit In 0.45 % NaCl 1 250ml.bag @ 15. 36 UNITS/KG/HR 22.272 mls /hr IV .[id number] [facility] Rx#: [id number] Oral 200 Output: Urine 850 850 0 Other: Voiding Method Urinal Urinal # Voids 1 - Exam General appearance: The patient is alert, oriented, appears in no acute distress. HET: Head is normocephalic and atraumatic. Pupils are equal and reactive. Neck: Supple.. Trachea midline. Heart: Regular. Lungs: Equal expansion, normal respiratory effort. Abdomen: Soft, nontender, nondistended. Extremities: Normal skin color and turgor. No cyanosis, rash, ulceration, clubbing, or edema. Neurological: No focal deficits. Alert and oriented 3. - Labs CBC & Chem 7: 06/20/22 09:04 06/20/22 09:04 Labs: Abnormal Lab Results - Last 24 Hours (Table) 06/18/22 06/19/22 06/19/22 Range/Units 23:36 07:51 07:51 WBC 13.6 H (3.8-10.6) k/uL APTT 42.8 H (22.0-30.0) sec BUN 22 H (9-20) mg/dL Creatinine 1.31 H (0.66-1.25) mg/dL Glucose 123 H (74-99) mg/dL 06/19/22 Range/Units 07:51 WBC (3.8-10.6) k/uL APTT 54.3 H (22.0-30.0) sec BUN (9-20) mg/dL Creatinine (0.66-1.25) mg/dL Glucose (74-99) mg/dL Assessment and Plan Assessment: 1. Evidence of significant bilateral pulmonary emboli and evidence of right heart strain on repeat CTA status post thrombectomy 2. Acute bilateral pulmonary embolism status post percutaneous thrombectomy 3. Acute respiratory failure 4. Left lower extremity DVT 5. Obesity Plan: Repeat CT angiogram chest reviewed by Dr. Hayes and Dr. Castillo with recommendations discussed with Dr. Rm to repeat thrombectomy due to fair amount of thrombus remaining. We'll move forward with IVC filter placement today. Procedure discussed with patient including risks and benefits. Patient agreeable to proceed. Continue heparin drip. Thank you for this consultation, we will continue to follow. The impression and plan of care has been dictated as directed. Dr. Hayes I performed a history and examination of this patient, discussed the same with the dictator. I agree with the dictator's note ,documented as a scribe. Any additional findings or plans will be noted.
[2022-06-19] MEDS ORDERED: SODIUM CHLORIDE 0.9% 1,000 ML IV ONE (11:15)
[2022-06-19] MEDS ORDERED: fentaNYL (PF) 50 MCG/1 ML VIAL IVP ONE (11:15)
[2022-06-19] MEDS ORDERED: MIDAZOLAM 2 MG/2 ML VIAL IVP ONE (11:15)
[2022-06-19] MEDS ORDERED: LIDOCAINE 1% INJ 10MG/ML (20 ML MDV) SQ ONE (11:15)
[2022-06-19] MEDS ORDERED: IOPAMIDOL-250 100ML BTL INTRAARTER ONE (11:33)
--- NOTE | 2022-06-19 11:44 | P.OP ---
Date of Procedure: 06/19/22 Preoperative Diagnosis: Deep venous thrombosis with secondary pulmonary embolism in the face of adequate anticoagulation. Postoperative Diagnosis: Same. Procedure(s) Performed: 1: Ultrasound-guided cannulation right common femoral vein. 2: Right iliac venogram and inferior venacavogram. 3: Placement of IVC filter at the L2-L3 level. Implants: IVC filter. Anesthesia: MAC (2 mg of Versed and 50 g of fentanyl administered intravenously), local Surgeon: Nato Irving Estimated Blood Loss (ml): 2 Urine output (ml): 0 Pathology: none sent Condition: stable Disposition: no change Indications for Procedure: Patient is a 66-year-old male who presented with submassive pulmonary emboli who underwent percutaneous pulmonary thrombectomy. He was doing well when he experienced another acute onset shortness breath. Repeat CTA of the pulmonary arteries demonstrates recurrent pulmonary emboli in the face of adequate anticoagulation. Because of this the patient is offered placement of IVC filter. Procedure, risk and benefits were discussed with the patient. Patient wishes to proceed. Operative Findings: No evidence of right iliac or IVC thrombus. Description of Procedure: Patient was brought to the special procedure suite. The right femoral area was sterilely prepped and draped in usual manner. Utilizing ultrasound the right common femoral vein was identified. 1% Xylocaine was utilized for local anesthesia tissues overlying this segment. Through the anesthetized area and with the aid of ultrasound a multipurpose needle was utilized to cannulate the vein. Once cannulated Softip guidewire was advanced into the vein. The needle was withdrawn and a 6-[place] sheath was placed. Through the side port of the sheath a right iliac venogram as well as an infer ior venacavogram was performed. This demonstrated no evidence of venous thrombus was then these 2 segments. The cava measured to proximal a 29 mm in greatest transverse diameter and the confluence of the renal veins to the cava was noted. Guidewire was advanced through the sheath and the sheath was withdrawn and exchanged for vena cava filter sheath and dilator which were advanced over the guidewire the dilator was withdrawn and through this introducer sheath the filter was advanced and deployed at the L2-L3 interspace. Completion venogram demonstrated the filter to be in appropriate position. The sheath was then withdrawn. Pressure was held at the puncture site until all evidence of bleeding ceased Patient tolerated procedure well and was returned to his room in satisfactory and stable condition. Total fluoroscopy time: 0.7 minutes. Total contrast volume utilized: 25 ML's of Isovue.
[2022-06-19] MEDS: SODIUM CHLORIDE 0.9% 1,000 ML IV SCH ×2 (12:53→18:02)
[2022-06-20] MEDS: HEPARIN SOD,PORK IN 0.45% NACL 25,000 UNIT in 0.45% NACL 1 250ML.BAG IV SCH ×2 (01:29→06:41)
[2022-06-20] MEDS: SODIUM CHLORIDE 0.9% 1,000 ML IV SCH ×2 (01:30→11:03)
--- NOTE | 2022-06-20 05:55 | IR ---
EXAMINATION TYPE: IR IVC filter placement DATE OF EXAM: 06/19/2022 CLINICAL HISTORY: DVT. History of coagulation failure. TECHNIQUE: Fluoroscopy. COMPARISON: None. FINDINGS: Fluoroscopic guidance was provided during IVC insertion procedure performed by Dr. Rober ward. A total of 42 seconds of fluoroscopic time was utilized during the procedure and 157 spot images was acquired. Images acquired show placement of IVC filter at right L2 level. IMPRESSION: As Above. TOTAL DAP = 3.73 Gy x cm2
--- NOTE | 2022-06-20 08:33 | P.PN ---
Subjective Progress Note Date: 06/20/22 PROGRESS NOTE The patient is a 66-year-old male with a prior history of DVT who presented with acute dyspnea and was found to have acute pulmonary embolism. He was not on anticoagulation on presentation. He has a history of chronic tobacco use. His echocardiogram showed dilatation of the RV side with decreased systolic function and evidence of pulmonary hypertension. He underwent thrombectomy with removal of large thrombotic material. He is feeling much better, on room air. He denies any chest discomfort, dizziness or palpitations. He continues to be on IV heparin. He is in sinus mechanism and hemodynamically stable. He had evidence of DVT on the left side June 19: Yesterday morning patient became acutely more dyspneic, tachypnea, hypoxic and tachycardic highly suggestive of a new pulmonary embolism moving from his DVT. He was started back on IV heparin. A computed tomography scan was done this morning and showed evidence of bilateral pulmonary embolism was evidence of right heart strain. He's feeling much better this morning, his sinus tachycardia resolved and he is on nasal cannula with O2 sat of 94. He is not tachypneic. He denies any chest discomfort, dizziness or palpitations. He denies any nausea. His blood pressure is stable. He was seen by vascular surgery for possible IVC filter because of the recurrent pulmonary embolism and history of prior DVT. June 20: The patient received an IVC filter yesterday. He's doing well this morning, on room air, hemodynamically stable without any chest discomfort, dyspnea or dizziness. He continues to be on IV heparin. He continues to be in sinus mechanism. He denies any palpitations. Medications: IV heparin, Lipitor 40 mg daily. PHYSICAL EXAMINATION: Blood pressure 102/60 heart rate 80 LUNGS: Clear to auscultation HEART: Regular rate and rhythm, S1, S2. No S3. systolic ejection murmur at the base ABDOMEN: Soft, nontender, no organomegaly EXTREMETIES: Trace bilateral edema with more on the left side, right groin no hematoma His BUN and creatinine yesterday were 22 and 1.31 IMPRESSION: 1. Post-acute bilateral pulmonary embolism with mechanical thrombectomy with possible recurrent embolism 2. Evidence of RV dilatation and pulmonary hypertension 3. Chronic tobacco use 4. Prior history of DVT 5. Status post IVC implant PLAN: 1. Change to oral anticoagulation 2. Follow renal functions 3. If stable probable DC in a.m. and follow-up as an outpatient Objective - Vital Signs Vital signs: Vital Signs Temp 97.7 F 06/20/22 07:15 Pulse 84 06/20/22 07:15 Resp 20 06/20/22 07:15 BP 102/56 06/20/22 07:15 Pulse Ox 96 06/20/22 07:15 FiO2 50 06/19/22 03:22 Intake & Output 06/19/22 06/20/22 06/20/22 18:59 06:59 18:59 Intake Total 1196.197 609.611 Output Total 850 300 Balance 346.197 309.611 Weight 141.9 kg Intake: IV 960 Sodium Chloride 0.9% 1, 910 000 ml @ 130 mls/hr IV . [id number] [facility] Rx#:[id number] Intake, IV Titration 236.197 409.611 Amount Heparin Sod,Pork in 0.45% 236.197 409.611 NaCl 25,000 unit In 0.45 % NaCl 1 250ml.bag @ 15. 36 UNITS/KG/HR 22.272 mls /hr IV .[id number] [facility] Rx#: [id number] Oral 200 Output: Urine 850 300 Other: Voiding Method Urinal Urinal - Labs CBC & Chem 7: 06/19/22 07:51 06/19/22 07:51 Labs: Abnormal Lab Results - Last 24 Hours (Table) 06/19/22 06/19/22 06/19/22 Range/Units 07:51 17:55 23:52 APTT 54.3 H 42.3 H 62.9 H (22.0-30.0) sec
[2022-06-20] MEDS: PANTOPRAZOLE 40 MG/10 ML VIAL IV SCH (08:41)
[2022-06-20] MEDS: ATORVASTATIN 40 MG TAB PO SCH (08:41)
[2022-06-20] MEDS: APIXABAN 5 MG TAB PO SCH ×2 (08:41→20:40)
[2022-06-20 09:54] LABS: Basophils % (A) 0 %; Eosinophils # (A) 0.4 k/uL (0-0.7); Eosinophils % (A) 3 %; HCT 46.7 % (39.0-53.0); Lymphocytes # (A) 2.1 k/uL (1.0-4.8); Lymphocytes % (A) 19 %; MCH 29.4 pg (25.0-35.0); MCHC 32.2 g/dL (31.0-37.0); MCV 91.5 fL (80.0-100.0); Mean Platelet Volume 7.9; Monocytes # (A) 0.6 k/uL (0-1.0); Monocytes % (A) 6 %; Neutrophils % (A) 71 %; Platelet Count 196 k/uL (150-450); RDW 13.7 % (11.5-15.5); WBC 11.2 k/uL (3.8-10.6)
--- NOTE | 2022-06-20 10:08 | P.PN ---
Subjective Progress Note Date: 06/20/22 Principal diagnosis: Saddle Pulmonary embolism, left lower extremity DVT Patient seen and examined today for follow-up. Yesterday he underwent IVC f ilter placement through the right femoral vein. Patient is without any complaints. States his breathing has improved significantly. He states he did not require any supplemental oxygen through the night. He has been up and ambulating. Denies any bleeding from the right groin. Objective - Vital Signs Vital signs: Vital Signs Temp 97.7 F 06/20/22 07:15 Pulse 84 06/20/22 07:15 Resp 20 06/20/22 07:15 BP 102/56 06/20/22 07:15 Pulse Ox 96 06/20/22 07:15 FiO2 50 06/19/22 03:22 Intake & Output 06/19/22 06/20/22 06/20/22 18:59 06:59 18:59 Intake Total 1196.197 609.611 180 Output Total 850 300 Balance 346.197 309.611 180 Weight 141.9 kg Intake: IV 960 Sodium Chloride 0.9% 1, 910 000 ml @ 130 mls/hr IV . Q7H42M [facility] Rx#:[id number] Intake, IV Titration 236.197 409.611 Amount Heparin Sod,Pork in 0.45% 236.197 409.611 NaCl 25,000 unit In 0.45 % NaCl 1 250ml.bag @ 15. 36 UNITS/KG/HR 22.272 mls /hr IV .[id number] [facility] Rx#: [id number] Oral 200 180 Output: Urine 850 300 Other: Voiding Method Urinal Urinal - Exam General appearance: The patient is alert, oriented, appears in no acute distress. HET: Head is normocephalic and atraumatic. Pupils are equal and reactive. Neck: Supple.. Trachea midline. Extremities: Right groin access site with some minimal ecchymosis, no hematoma noted, no bleeding. Normal skin color and turgor. No cyanosis, rash, ulceration, clubbing, or edema. Neurological: No focal deficits. Alert and oriented 3. - Labs CBC & Chem 7: 06/20/22 09:04 06/19/22 07:51 Labs: Abnormal Lab Results - Last 24 Hours (Table) 04/19/23 04/19/23 Range/Units 17:55 23:52 APTT 42.3 H 62.9 H (22.0-30.0) sec Assessment and Plan Assessment: 1. Left lower extremity DVT status post IVC filter placement 2. Evidence of significant bilateral pulmonary emboli and evidence of right heart strain on repeat CTA status post thrombectomy 3. Acute bilateral pulmonary embolism status post percutaneous thrombectomy 4. Acute respiratory failure 5. Obesity Plan: Continue with recommendations from cardiology. Patient is cleared for discharge from vascular surgery. We will sign off at this time. Thank you for this consultation. The impression and plan of care has been dictated as directed. Dr. Hayes I performed a history and examination of this patient, discussed the same with the dictator. I agree with the dictator's note ,documented as a scribe. Any additional findings or plans will be noted.
[2022-06-20 10:18] LABS: Calcium 8.5 mg/dL (8.4-10.2); Potassium 4.1 mmol/L (3.5-5.1)
[2022-06-20] MEDS: NICOTINE 21MG/24HR PATCH TRANSDERM SCH (11:03)
--- NOTE | 2022-06-20 11:33 | P.PN ---
Subjective Progress Note Date: 06/20/22 Hospital Course: 66-year-old male with history of tobacco smoking presents the ED for pr ogressively worsening shortness of breath over the past 2-3 days. In the ED, he was noted to have a respiratory rate of 28, pulse of 128 and O2 saturation of 90% on room air. CBC showed leukocytosis of 14.7. Coagulation panel was within normal limits. D-dimer elevated at 23.8. CMP showed chloride 108, bicarb 19, glucose 157, total bilirubin of 1.7. Troponin was 0.254. BNP was 940. COVID- 19 negative. EKG showed atrial tachycardia with ventricular rate of 126. Chest x-ray was negative. CTA chest showed bilateral pulmonary emboli with evidence of right heart strain. Venous Doppler showed positive DVT from the common femoral vein to the popliteal vein of the left leg. Patient started on a heparin drip. He underwent thrombectomy and was admitted to ICU. Echocardiogram showed severely reduced RV systolic function, normal LV EF of 55- 60%. Due to concerns for further decompensation, patient remained on IV heparin. Vascular surgery was consulted, status post IVC filter. Now tra nsitioned to [facility]. Subjective: Patient seen and examined at bedside. No acute events overnight. His shortness of breath is improving. He denies any chest pain, palpitations, abdominal pain, nausea, vomiting, urinary or bowel complaints. Pertinent positives and negatives as discussed above, a complete review of systems was performed and all other systems are negative. Vitals Signs Reviewed. General: nontoxic, no distress, appears at stated age, morbidly obese Derm: warm, dry Head: atraumatic, normocephalic, symmetric Eyes: EOMI, no lid lag, anicteric sclera Mouth: no lip lesion, mucus membranes moist Cardiovascular: S1S2 reg, no murmur Lungs: CTA bilateral, no rhonchi, no rales , no accessory muscle use, supplemental oxygen Abdominal: soft, nontender to palpation, no guarding, no appreciable organomegaly Ext: no gross muscle atrophy, no edema, no contractures Neuro: CN II-XI grossly intact, no focal neuro deficits Psych: Alert, oriented, appropriate affect Data Reviewed Today: Pertinent Labs: WBC 11.2, hemoglobin 15, APTT 62.5, sodium 138, bicarbonate 18, creatinine 1.06 Assessment and Plan: Active: Acute submassive saddle pulmonary embolism status post mechanical thrombectomy, and status post IVC filter placement Acute hypoxic respiratory failure Acute left leg DVT Pulmonary hypertension History of DVT, unprovoked Non-anion gap metabolic acidosis -Cardiology note reviewed, transitioned to oral Eliquis, likely discharge tomorrow -Vascular surgery note reviewed, discharge from their standpoint -Pulmonology also following -Continue to wean oxygen -Normal saline discontinued Resolved: Non-anion gap metabolic acidosis Acute kidney injury Leukocytosis Chronic: Tobacco use Dyslipidemia DVT ppx: Eliquis Code status: Full code Anticipated discharge place: Home Anticipated discharge time: Likely tomorrow Objective - Vital Signs Vital signs: Vital Signs Temp 97.7 F 06/20/22 07:15 Pulse 84 06/20/22 07:15 Resp 20 06/20/22 07:15 BP 102/56 06/20/22 07:15 Pulse Ox 97 06/20/22 09:24 FiO2 50 06/19/22 03:22 Intake & Output 06/19/22 06/20/22 06/20/22 18:59 06:59 18:59 Intake Total 1196.197 609.611 180 Output Total 850 300 Balance 346.197 309.611 180 Weight 141.9 kg Intake: IV 960 Sodium Chloride 0.9% 1, 910 000 ml @ 130 mls/hr IV . Q7H42M [facility] Rx#:[id number] Intake, IV Titration 236.197 409.611 Amount Heparin Sod,Pork in 0.45% 236.197 409.611 NaCl 25,000 unit In 0.45 % NaCl 1 250ml.bag @ 15. 36 UNITS/KG/HR 22.272 mls /hr IV .[id number] [facility] Rx#: [id number] Oral 200 180 Output: Urine 850 300 Other: Voiding Method Urinal Urinal Urinal # Voids 1 # Bowel Movements 2 - Labs CBC & Chem 7: 06/20/22 09:04 06/20/22 09:04 Labs: Abnormal Lab Results - Last 24 Hours (Table) 06/19/22 06/19/22 06/20/22 Range/Units 17:55 23:52 09:04 WBC (3.8-10.6) k/uL Neutrophils # (1.3-7.7) k/uL APTT 42.3 H 62.9 H (22.0-30.0) sec Chloride 109 H (98-107) mmol/L Carbon Dioxide 18 L (22-30) mmol/L Glucose 112 H (74-99) mg/dL 06/20/22 06/20/22 Range/Units 09:04 09:04 WBC 11.2 H (3.8-10.6) k/uL Neutrophils # 8.0 H (1.3-7.7) k/uL APTT 62.5 H (22.0-30.0) sec Chloride (98-107) mmol/L Carbon Dioxide (22-30) mmol/L Glucose (74-99) mg/dL
--- NOTE | 2022-06-20 13:41 | CDI ---
Documentation Clarification Form Date: 06/20/2022 1:39:44 PM From: Haydee Bella RN, CCDS Admit Date: 06/17/2022 10:12:00 AM Patient Name: Sam Mayfield Visit Number: [id number] Discharge Date: ATTENTION: The Clinical Documentation Specialists (CDI) and [facility] Coding Staff appreciate your assistance in clarifying documentation. Please respond to the clarification below the line at the bottom and electronically sign. The CDI & [facility] Coding staff will review the response and follow-up if needed. Please note: Queries are made part of the Legal Health Record. If you have any questions, please contact the author of this message via ITS. Dr. Jane Valdez There is documentation of acute bilateral pulmonary embolism, with right heart strain in the pulmonary consult and subsequent progress notes Additional clarification is requested. History/Risk Factors: Current every day smoker Clinical Indicators: 66-year-old male present with increasing shortness of breath while working in the yard. CT angiogram revealed bilateral pulmonary emboli, with evidence of right heart strain. 06/17 Venous Doppler: Left Leg: Positive for DVT from common femoral vein to Popliteal Vein. 06/17 Vital signs: 121/81 128 28 90% RA, 140/81 118 26 93% 4/L NC 06/17 Labs: WBC 14.7; D-Dimer 23.80 Troponin 0.254 06/17 ECHO: Moderately increased left ventricular wall thickness abnormal septal motion EF 45-50 % Severe right ventricular dilation. Moderate pulmonary hypertension. Right ventricular systolic pressure estimated at 52 mm hg. Right heart strain noted. Treatment: ICU/Telemetry Monitoring Heparin drip per orders, Monitor APTT while on heparin drip Monitor O2 Sat's (Titrate) 06/17 Pulmonary embolism thrombectomy 06/19 Placement of IVC filter at the L2-L3 level Can you please clarify if there is an additional diagnosis that is appropriate for this patient? [ x ] Acute bilateral pulmonary embolism, with right heart strain with acute cor pulmonale [ ] Acute bilateral pulmonary embolism, with right heart strain without acute cor pulmonale [ ] Other, please specify [ ] Unable to determine (Template Last Revised: May 2020) MTDD
--- NOTE | 2022-06-20 18:05 | P.PN ---
Subjective Progress Note Date: 06/20/22 66-year-old male seen in the intensive care unit, for shortness of breath. He was initially evaluated in the emergency room, on June 17, by Dr. Leonid Jade. The patient came into the emergency room complaining of 2 days worth of increasing shortness of breath, while working out in the yard. The patient also admitted to some chest pressure, in the center of his chest. He denied any fever or chills. He denied any cough or phlegm production. The patient apparently takes no medications at home, and has no significant past medical history. He's had an appendectomy and hernia surgery in the past. He does smoke cigarettes on a regular basis. No illicit drug use, and occasional alcohol use. Laboratory data includes a white count of 14.7, with a normal hemoglobin, hematocrit, and platelet count. His d-dimer was nearly 24. Sodium 138, potassium 4.5, chlorides 108, CO2 19, anion gap 11, BUN 19, creatinine 1.06. Glucose was 157. The patient's troponin was 0.254. Testing for coronavirus was negative. Chest x-ray was normal to my eye. Dopplers of the lower extremities revealed a left DVT in the common femoral vein. CT angiogram revealed bilateral pulmonary emboli, with evidence of right heart strain. .on today's evaluation of 06/18/2022, the patient is still having some shortness of breath with minimal amount of activity . Note the patient had submassive pulmonary embolism with evidence of RV strain and a left lower extremity DVT. Based on that, the patient underwent a catheter directed aspiration of pulmonary embolism using the [employer] system. The patient is currently on oxygen at 15 L Ventimask and the patient's current pulse ox is 92%. I reviewed the CT angiogram and the patient had evidence of bilateral pulmonary emboli extending to the lobar and segmental and subsegmental branches. There was also evidence of pulmonary infarct in the right upper lobe. There was evidence of RV strain. Echocardiogram was also completed on 06/07/2022 and it showed moderate pulmonary hypertension/severe pulmonary hypertension with severe RV dilatation. The left ejection fraction was 45-50%. Or now, the patient is on anticoagulation with Eliquis that was started a dose of 10 mg by mouth twice a day. Previous echoes at 13.5 with hemoglobin 16.2. Sodium is at 136, BUN is at 70 with a creatinine of 1.03. Troponin peaked at 0.25. Noted the patient had some initial imp rovement and earlier this morning he was on 4 L of Oxymizer nasal cannula. After doing some activity, he became tachycardic and more hypoxic and was placed on 15 L Ventimask. He is currently in some sinus tachycardia. On 06/19/2022, the patient is looking much better. After some interval decompe nsation yesterday and tachycardia and worsening in oxygenation shortness of breath, the patient gradually improved and this morning he is on oxygen at X liters. His tachycardia is very much improved his heart rate is currently down to 96. His pulse oxing 98% on 6 L of oxygen by nasal cannula. As mentioned earlier, the patient had massive pulmonary embolism. His echocardiogram showed severe RV dilation and pulmonary hypertension. He was being placed on Eliquis and I had to put him on IV heparin in anticipation for further intervention should his condition decompensated. However, the patient remained adequately stable on IV heparin. His PTT currently is a 54. Hemoglobin stable at 15.6. The lungs noted at 13.6. BUN is 22 with a creatinine of 1.3 and a sodium level of 138. Because of the extent of the problem and the underlying hemodynamic instability, we decided to proceed with a IVC filter placement after having a lengthy discussion with the vascular surgeons and cardiology. On today's evaluation of 06/20/2022, the patient is doing much better. Is currently on room air oxygen. His gradually increase his level of activity. He remains on anticoagulation with Eliquis. He is still having some sinus tachycardia. Today's heart rate is currently at 105. Pulse ox is up to 98% on room air oxygen. Meanwhile, his blood work shows a basic of 11.2 with hemoglobin of 15. The serum bicarbonate of 18 with a sodium level of 138, BUN is 17 with a creatinine of 1.0 and his been interval improvement in his renal function. No new complaints. No pleurisy. No chest pain. He has chronic varicosities and ongoing discomfort and pain in his lower oximetry is bilaterally along with a superimposed DVTs bilaterally. He is post IVC filter placement. Objective - Vital Signs Vital signs: Vital Signs Temp 97.9 F 06/20/22 16:00 Pulse 94 06/20/22 16:00 Resp 17 06/20/22 16:00 BP 145/86 06/20/22 16:00 Pulse Ox 98 06/20/22 16:00 FiO2 50 06/19/22 03:22 Intake & Output 06/19/22 06/20/22 06/20/22 18:59 06:59 18:59 Intake Total 1196.197 017.099 7288 Output Total 850 300 Balance 346.197 474.566 2778 Weight 141.9 kg Intake: IV 960 Sodium Chloride 0.9% 1, 910 000 ml @ 130 mls/hr IV . Q7H42M [facility] Rx#:[id number] Intake, IV Titration 236.197 409.611 390 Amount Heparin Sod,Pork in 0.45% 236.197 409.611 NaCl 25,000 unit In 0.45 % NaCl 1 250ml.bag @ 15. 36 UNITS/KG/HR 22.272 mls /hr IV .[id number] [facility] Rx#: [id number] Sodium Chloride 0.9% 1, 390 000 ml @ 130 mls/hr IV . Q7H42M [facility] Rx#:[id number] Oral 200 660 Output: Urine 850 300 Other: Voiding Method Urinal Urinal Urinal # Voids 1 # Bowel Movements 1 - Exam No acute distress, oriented 3. Patient is currently on room air oxygen by nasal cannula the breathing is nonlabored HEENT examination is grossly unremarkable. Neck supple. Full range of motion. No adenopathy thyromegaly or neck vein distention. Cardiovascular examination reveals regular rhythm rate. S1-S2 normal. No S3 or S4. No discernible murmur noted. Lungs reveal mostly clear breath sounds. Minimal rhonchi noted. No wheezes or crackles. Breath sounds are equal bilaterally. Abdomen soft bowel sounds are heard. No masses or tenderness. Extremities are intact. No cyanosis clubbing or edema. Left leg tenderness on palpation. Skin is without rash or lesion. Neurologic examination is brief but nonfocal. - Labs CBC & Chem 7: 06/20/22 09:04 06/20/22 09:04 Labs: Abnormal Lab Results - Last 24 Hours (Table) 06/19/22 06/19/22 06/20/22 Range/Units 17:55 23:52 09:04 WBC (3.8-10.6) k/uL Neutrophils # (1.3-7.7) k/uL APTT 42.3 H 62.9 H (22.0-30.0) sec Chloride 109 H (98-107) mmol/L Carbon Dioxide 18 L (22-30) mmol/L Glucose 112 H (74-99) mg/dL 06/20/22 06/20/22 Range/Units 09:04 09:04 WBC 11.2 H (3.8-10.6) k/uL Neutrophils # 8.0 H (1.3-7.7) k/uL APTT 62.5 H (22.0-30.0) sec Chloride (98-107) mmol/L Carbon Dioxide (22-30) mmol/L Glucose (74-99) mg/dL Assessment and Plan Plan: Acute hypoxemic respiratory failure secondary to acute bilateral pulmonary embolism, with right heart strain. The patient presented with a left lower extremity DVT and extensive pulmonary embolism with heavy clot burden and the patient had a massive pulmonary embolism, high risk with evidence of RV strain and elevated troponin. Patient underwent catheter directed clot suctioning, thrombectomy. The patient is currently on anti-cognition with Eliquis. IVC filter was placed as the patient had some decompensation postop day #1. Subsequently, his condition gradually improved and he was taken off the IV heparin and he is currently on anticoagulation with Eliquis. Acute hypoxic respiratory failure, recovered currently on room air oxygen Sinus tachycardia secondary to above, improving History of left DVT. The patient had recurrent DVTs of the left lower extremity and the patient was taken off the anticoagulation and he was on no anticoagulants prior to his hospital admission Acute massive hiatus pulmonary embolism Severe pulmonary hypertension with RV dilatation secondary to above Possible pulmonary infarct Sinus tachycardia, improving Shortness of breath secondary to above Ongoing tobacco use with nicotine addiction. Chronic varicose veins involving the lower extremities Plan Wean down FiO2 as tolerated, currently on room air oxygen Patient is currently on anticoagulation with Eliquis and the patient is also given IVC filter Monitor renal function and the patient's creatinine is normalized. We'll continue to follow. The patient is ambulating. No somatic and shortness of breath. We'll continue to follow, possible discharge in a.m.
[2022-06-20] MEDS: ACETAMINOPHEN TAB 325 MG TAB PO PRN (23:34)
[2022-06-21 07:22] VITALS: RESP 18
[2022-06-21] MEDS: PANTOPRAZOLE 40 MG/10 ML VIAL IV SCH (08:54)
[2022-06-21] MEDS: APIXABAN 5 MG TAB PO SCH (08:54)
[2022-06-21] MEDS: ATORVASTATIN 40 MG TAB PO SCH (08:54)
[2022-06-21] MEDS: NICOTINE 21MG/24HR PATCH TRANSDERM SCH (08:54)
--- NOTE | 2022-06-21 09:08 | P.PN ---
Subjective Progress Note Date: 06/21/22 PROGRESS NOTE The patient is a 66-year-old male with a prior history of DVT who presented with acute dyspnea and was found to have acute pulmonary embolism. He was not on anticoagulation on presentation. He has a history of chronic tobacco use. His echocardiogram showed dilatation of the RV side with decreased systolic function and evidence of pulmonary hypertension. He underwent thrombectomy with removal of large thrombotic material. He is feeling much better, on room air. He denies any chest discomfort, dizziness or palpitations. He continues to be on IV heparin. He is in sinus mechanism and hemodynamically stable. He had evidence of DVT on the left side June 19: Yesterday morning patient became acutely more dyspneic, tachypnea, hypoxic and tachycardic highly suggestive of a new pulmonary embolism moving from his DVT. He was started back on IV heparin. A computed tomography scan was done this morning and showed evidence of bilateral pulmonary embolism was evidence of right heart strain. He's feeling much better this morning, his sinus tachycardia resolved and he is on nasal cannula with O2 sat of 94. He is not tachypneic. He denies any chest discomfort, dizziness or palpitations. He denies any nausea. His blood pressure is stable. He was seen by vascular surgery for possible IVC filter because of the recurrent pulmonary embolism and history of prior DVT. June 20: The patient received an IVC filter yesterday. He's doing well this morning, on room air, hemodynamically stable without any chest discomfort, dyspnea or dizziness. He continues to be on IV heparin. He continues to be in sinus mechanism. He denies any palpitations. June 21: The patient is feeling better, he is more active physically, continues to be in sinus mechanism. He has mild dyspnea on exertion. He denies any dizziness or palpitations. No nausea or vomiting. Hemodynamically he is stable. He started oral anticoagulation yesterday. Medications: Eliquis 10 mg bid, Lipitor 40 mg daily. PHYSICAL EXAMINATION: Blood pressure 122/80 heart rate 90 LUNGS: Clear to auscultation HEART: Regular rate and rhythm, S1, S2. No S3. systolic ejection murmur at the base ABDOMEN: Soft, nontender, no organomegaly EXTREMETIES: Trace bilateral edema with more on the left side, right groin no hematoma His BUN and creatinine 17 and 1.06 IMPRESSION: 1. Post-acute bilateral pulmonary embolism with mechanical thrombectomy with possible recurrent embolism 2. Evidence of RV dilatation and pulmonary hypertension 3. Chronic tobacco use 4. Prior history of DVT 5. Status post IVC implant PLAN: 1. Continue present therapy 2. DC home today and follow-up as an outpatient Objective - Vital Signs Vital signs: Vital Signs Temp 98.9 F 06/21/22 07:15 Pulse 99 06/21/22 07:15 Resp 18 06/21/22 07:15 BP 122/80 06/21/22 07:15 Pulse Ox 95 06/21/22 09:03 FiO2 50 06/19/22 03:22 Intake & Output 06/20/22 06/21/22 06/21/22 18:59 06:59 18:59 Intake Total 1710 270 180 Balance 1710 270 180 Intake: Intake, IV Titration 390 Amount Sodium Chloride 0.9% 1, 390 000 ml @ 130 mls/hr IV . Q7H42M [facility] Rx#:[id number] Oral 1320 270 180 Other: Voiding Method Urinal Urinal # Voids 1 # Bowel Movements 1 - Labs CBC & Chem 7: 06/20/22 09:04 06/20/22 09:04 Labs: Abnormal Lab Results - Last 24 Hours (Table) 06/20/22 06/20/22 06/20/22 Range/Units 09:04 09:04 09:04 WBC 11.2 H (3.8-10.6) k/uL Neutrophils # 8.0 H (1.3-7.7) k/uL APTT 62.5 H (22.0-30.0) sec Chloride 109 H (98-107) mmol/L Carbon Dioxide 18 L (22-30) mmol/L Glucose 112 H (74-99) mg/dL
[2022-06-21 09:19] LABS: Calcium 8.9 mg/dL (8.4-10.2); Potassium 4.3 mmol/L (3.5-5.1)
[2022-06-21] MEDS: ACETAMINOPHEN TAB 325 MG TAB PO PRN (10:45)
--- NOTE | 2022-06-21 10:47 | P.DS ---
Providers Date of admission: 06/17/22 10:12 Expected date of discharge: 06/21/22 Attending physician: Ambrosio Cox MD Consults: 06/17/22 10:11 Consult Physician Stat Consulting Provider: Tucker Rm Consult Reason/Comments: PE ? ekos Do you want consulting provider notified?: Already Contacted 06/17/22 10:12 Consult Physician Stat Consulting Provider: Angel Henson Consult Reason/Comments: PE Do you want consulting provider notified?: Already Contacted [facility] Hospital Course: Discharge Diagnosis: Acute submassive saddle pulmonary embolism status post mechanical thrombectomy, and status post IVC filter placement Acute hypoxic respiratory failure Acute left leg DVT Pulmonary hypertension History of DVT, unprovoked Non-anion gap metabolic acidosis Acute kidney injury Leukocytosis Tobacco use Dyslipidemia Hospital Course: 66-year-old male with history of tobacco smoking presents the ED for progressively worsening shortness of breath over the past 2-3 days. In the ED, he was noted to have a respiratory rate of 28, pulse of 128 and O2 saturation of 90% on room air. CBC showed leukocytosis of 14.7. Coagulation panel was within normal limits. D-dimer elevated at 23.8. CMP showed chloride 108, bicarb 19, glucose 157, total bilirubin of 1.7. Troponin was 0.254. BNP was 940. COVID- 19 negative. EKG showed atrial tachycardia with ventricular rate of 126. Chest x-ray was negative. CTA chest showed bilateral pulmonary emboli with evidence of right heart strain. Venous Doppler showed positive DVT from the common femoral vein to the popliteal vein of the left leg. Patient started on a heparin drip. He underwent thrombectomy and was admitted to ICU. Echocardiogram showed severely reduced RV systolic function, normal LV EF of 55- 60%. Due to concerns for further decompensation, patient remained on IV heparin. Vascular surgery was consulted, status post IVC filter. Now transitioned to [facility]. He will follow-up with cardiology. Patient seen and examined at bedside. Vital signs reviewed and stable. General: nontoxic, no distress, appears at stated age Derm: warm, dry Head: atraumatic, normocephalic, symmetric Eyes: EOMI, no lid lag, anicteric sclera Mouth: no lip lesion, mucus membranes moist Cardiovascular: S1S2 reg, no murmur Lungs: CTA bilateral, no rhonchi, no rales , no accessory muscle use Abdominal: soft, nontender to palpation, no guarding, no appreciable organomegaly Ext: no gross muscle atrophy, no edema, no contractures Neuro: CN II-XI grossly intact, no focal neuro deficits Psych: Alert, oriented, appropriate affect A total of 36 minutes of time were spent preparing this complex discharge summary. Patient was discharged on 06/21/22 at 10:45. Patient Condition at Discharge: Stable Plan - Discharge Summary Discharge Rx Participant: Yes New Discharge Prescriptions: New Atorvastatin [Lipitor] 40 mg PO DAILY #60 tab Apixaban [Eliquis Starter Pack (for VTE)] 5 - 10 mg PO DIRECTED 30 Days #1 each Discharge Medication List Apixaban [Eliquis Starter Pack (for VTE)] 5 - 10 mg PO DIRECTED 30 Days #1 each 06/21/22 [Rx] Atorvastatin [Lipitor] 40 mg PO DAILY #60 tab 06/21/22 [Rx] Follow up Appointment(s)/Referral(s): Tucker Rm MD [STAFF PHYSICIAN] - 1 Week None,Stated [REFERRING] - 1-2 days Patient Instructions/Handouts: Pulmonary Embolism (DC) Activity/Diet/Wound Care/Special Instructions: Please see cardiology in your PCP as soon as possible. He will likely need Eliquis lifelong. He also need your regular cancer screening to find the cause of blood clots. Discharge Disposition: HOME SELF-CARE
[2022-06-21 12:08] VITALS: BP 142/78; PULSE 91; TEMP 97.9
== END 2022-06-21 12:23 | disposition home or self-care (01) | DRG 163 ==
LOC: EC 07:27 → 2SICU 10:12 → 3SCARD 06-19 18:46
PROVIDERS: ADMIT Family Medicine; ATTEND Family Medicine
PROC: 02CQ3ZZ Extirpation of Matter from Right Pulmonary Artery, Percutaneous Approach (ICD-10-PCS; principal; 2022-06-17 12:44)
PROC: 02CR3ZZ Extirpation of Matter from Left Pulmonary Artery, Percutaneous Approach (ICD-10-PCS; principal; 2022-06-17 12:44)
PROC: 06H03DZ Insertion of Intraluminal Device into Inferior Vena Cava, Percutaneous Approach (ICD-10-PCS; 2022-06-19)
DX: I26.02 Saddle embolus of pulmonary artery with acute cor pulmonale (principal); J96.01 Acute respiratory failure with hypoxia; N17.0 Acute kidney failure with tubular necrosis; I47.1 Supraventricular tachycardia; I82.412 Acute embolism and thrombosis of left femoral vein; I24.8 Other forms of acute ischemic heart disease; Z86.711 Personal history of pulmonary embolism; Z79.01 Long term (current) use of anticoagulants; E66.01 Morbid (severe) obesity due to excess calories; Z68.37 Body mass index [BMI] 37.0-37.9, adult; Z20.822 Contact with and (suspected) exposure to COVID-19; Z28.21 Immunization not carried out because of patient refusal; I27.20 Pulmonary hypertension, unspecified; T50.8X5A Adverse effect of diagnostic agents, initial encounter; Z82.49 Family history of ischemic heart disease and other diseases of the circulatory system; Z86.718 Personal history of other venous thrombosis and embolism; E78.5 Hyperlipidemia, unspecified; F17.210 Nicotine dependence, cigarettes, uncomplicated
CPT/HCPCS: 36014; 36415; 37184; 37185; 37191; 71045; 71046; 71275; 75741; 80048; 80053; 83605; 83735; 83880; 84484; 85025; 85027; 85379; 85610; 85730; 87635; 93005; 93306; 94660; 94760; 96365; 96366; 96375; 99291

== ENCOUNTER 2022-06-24 19:36 | Emergency (ER) | payer OTHER ==
[2022-06-24 19:54] VITALS: TEMP 97.9
--- NOTE | 2022-06-24 20:39 | US ---
EXAMINATION TYPE: US venous doppler duplex LE LT DATE OF EXAM: 06/24/2022 8:30 PM COMPARISON: Ultrasound 1 week ago CLINICAL INDICATION: Male, 66 years old with history of swelling to left leg r/o dvt; Diagnosed with DVT in left leg from CFV down entire leg and PE on 06/17/22. On blood thinners since that day SIDE PERFORMED: Left TECHNIQUE: The lower extremity deep venous system is examined utilizing real time linear array sonog rey with graded compression, doppler sonography and color-flow sonography. VESSELS IMAGED: Common Femoral Vein Deep Femoral Vein Greater Saphenous Vein * Femoral Vein Popliteal Vein Small Saphenous Vein * Proximal Calf Veins (* superficial vessels) Left Leg: Positive for DVT. The CFV and GSV appeared to compress. Prox femoral vein down to mid calf appeared to have thrombus and was partial-no comp with no flow. Grayscale, color doppler, spectral doppler imaging performed of the deep veins of the left lower extr emity. There is normal flow, compressibility, vascular waveforms. IMPRESSION: Improvement in long segment acute DVT in the left lower extremity after ongoing treatmen t with some recanalized patent vein towards the groin noted.
--- NOTE | 2022-06-24 21:02 | ED ---
Extremity Problem HPI - General Chief complaint: Extremity Problem,Nontraumatic Stated complaint: Leg Pain Time Seen by Provider: 06/24/22 20:51 Source: patient, RN notes reviewed, old records reviewed Mode of arrival: wheelchair Limitations: no limitations - History of Present Illness Initial comments: This is a pleasant 66-year-old male that presents to the emergency room with complaints of left lower extremity pain and swelling worse since yesterday. Was diagnosed last week with a DVT and pulmonary embolism, discharged from hospital yesterday. At that time was placed on eliquis. Is due to see his doctor, Dr. Fournier tomorrow. Denies any difficulty breathing. -: week(s) (1) Location: left, lower extremity Severity scale (1-10): 10 Quality: constant Consistency: constant Associated Symptoms: denies other symptoms - Related Data Previous Rx's Medication Instructions Recorded Apixaban [Eliquis Starter Pack 5 - 10 mg PO DIRECTED 30 Days 06/21/22 (for VTE)] #1 each Atorvastatin [Lipitor] 40 mg PO DAILY #60 tab 06/21/22 Allergies Allergy/AdvReac Type Severity Reaction Status Date / Time No Known Allergies Allergy Verified 06/17/22 10:02 Review of Systems ROS Statement: Those systems with pertinent positive or pertinent negative responses have been documented in the HPI. ROS Other: All systems not noted in ROS Statement are negative. Past Medical History Past Medical History: Deep Vein Thrombosis (DVT), Pulmonary Embolus (PE) History of Any Multi-Drug Resistant Organisms: None Reported Past Surgical History: Appendectomy, Hernia Repair Additional Past Surgical History / Comment(s): embolectomy. Past Anesthesia/Blood Transfusion Reactions: No Reported Reaction Past Psychological History: No Psychological Hx Reported Smoking Status: Current every day smoker, Former smoker Past Alcohol Use History: Occasional Past Drug Use History: None Reported - Past Family History Father Family Medical History: Hypertension Additional Family Medical History / Comment(s): of prostate CA General Exam Limitations: no limitations General appearance: alert, in no apparent distress Head exam: Present: atraumatic Eye exam: Present: normal appearance. Absent: scleral icterus, conjunctival injection, periorbital swelling Neck exam: Absent: meningismus Respiratory exam: Absent: respiratory distress, accessory muscle use Cardiovascular Exam: Present: regular rate GI/Abdominal exam: Present: soft Left Knee exam: Absent: tenderness Lower Leg exam: Present: tenderness, swelling. Absent: palpable cord, Homans' sign Ankle exam: Present: tenderness, swelling Foot/Toe exam: Present: tenderness, swelling Neurovascular tendon exam: Present: no vascular compromise. Absent: abnormal cap refill, extremity cold to touch, pallor, abnormal 2-point discrimination, decreased fine/light touch, foot drop Neurological exam: Present: alert, oriented X3 Psychiatric exam: Present: normal affect, normal mood Skin exam: Present: warm, dry, normal color. Absent: cyanosis, diaphoretic, petechiae, pallor Course Vital Signs 06/24/22 19:50 Temperature 97.9 F Pulse Rate 100 Respiratory 20 Rate Blood Pressure 160/89 O2 Sat by Pulse 97 Oximetry Medical Decision Making - Medical Decision Making Patient was diagnosed with DVT in the left leg from the central femoral vein down entire leg and PE on June 17 on thinners since. He had an IVC filter that was placed on last admission, 06/19, per Dr. Valdez's notes. Echocardiogram performed June 17 shows a dilated right ventricle with right ventricular systolic dysfunction. Moderate pulmonary hypertension. On physical exam leg is swollen, pink warm and dry. Patient denies any chest pain or shortness of breath. Repeat ultrasound performed and radiologist impression states improvement in long segment acute DVT in the left lower extremity after ongoing treatment with some recanalized patent vein towards the groin noted Patient was given a dose of pain medication in the ER with pain relief. Starter pack for Tylenol 3 provided. Patient and family member agreeable to discharge. Directed to continue Eliquis and use compression socks or Aamir wrap. Follow-up with his primary care doctor, Dr. Fournier tomorrow as scheduled. History of DVT, PE, states non-smoker. Case discussed with Dr. Jon Was pt. sent in by a medical professional or institution (, PA, CASTING DIRECTOR, urgent care, hospital, or correction...) When possible be specific @ -No Did you speak to anyone other than the patient for history (EMS, parent, family, police, friend...)? What history was obtained from this source @ -No Did you review nursing and triage notes (agree or disagree)? Why? @ -I reviewed and agree with nursing and triage notes Were old charts reviewed (outside hosp., previous admission, EMS record, old EKG, old radiological studies, urgent care reports/EKG's, correction records)? Report findings @ -Yes as above Differential Diagnosis (chest pain, altered mental status, abdominal pain women, abdominal pain men, vaginal bleeding, weakness, fever, dyspnea, syncope, headache, dizziness, GI bleed, back pain, seizure, CVA, palpatations, mental health, musculoskeletal)? @ -DVT, cellulitis, compartment syndrome EKG interpreted by me (3pts min.). @ -n/a X-rays interpreted by me (1pt min.). @ -None done CT interpreted by me (1pt min.). @ -None done U/S interpreted by me (1pt. min.). @ -no What testing was considered but not performed or refused? (CT, X-rays, U/S, labs)? Why? @ -None What meds were considered but not given or refused? Why? @ -None Did you discuss the management of the patient with other professionals (professionals i.e. , PA, CASTING DIRECTOR, lab, RT, psych nurse, group social worker, lawyers, teacher, protective services officer, major case detective)? Give summary @ -No Was smoking cessation discussed for >3mins.? @ -No Was critical care preformed (if so, how long)? @ -No Were there social determinants of health that impacted care today? How? (Homelessness, low income, unemployed, alcoholism, drug addiction, transportation, low edu. Level, literacy, decrease access to med. care, retirement, rehab)? @ -No Was there de-escalation of care discussed even if they declined (Discuss DNR or withdrawal of care, Hospice)? DNR status @ -No What co-morbidities impacted this encounter? (DM, HTN, Smoking, COPD, CAD, Cancer, CVA, ARF, Chemo, Hep., AIDS, mental health diagnosis, sleep apnea, morbid obesity)? @ -Obesity Was patient admitted / discharged? Hospital course, mention meds given and route, prescriptions, significant lab abnormalities, going to OR and other pertinent info. @ -Discharged Undiagnosed new problem with uncertain prognosis? @ -No Drug Therapy requiring intensive monitoring for toxicity (Heparin, Nitro, Insulin, Cardizem)? @ -No Were any procedures done? @ -No Diagnosis/symptom? @ -DVT left lower extremity Acute, or Chronic, or Acute on Chronic? @ -Acute Uncomplicated (without systemic symptoms) or Complicated (systemic symptoms)? @ -Uncomplicated Side effects of treatment? @ -No Exacerbation, Progression, or Severe Exacerbation? @ -No Poses a threat to life or bodily function? How? (Chest pain, [place], [place], pneumonia, PE, COPD, DKA, ARF, appy, cholecystitis, CVA, Diverticulitis, Homicidal, Suicidal, threat to staff... and all critical care pts) @ -No Disposition Clinical Impression: Deep vein thrombosis (DVT) of lower extremity Disposition: HOME SELF-CARE Condition: Good Instructions (If sedation given, give patient instructions): Deep Vein Thrombos is (ED) Additional Instructions: Continue taking the Eliquis as prescribed. Compression socks or dressing to lower extremities. Follow-up with your primary care doctor as scheduled tomorrow. Return to the emergency room with any new or concerning symptoms. Is patient prescribed a controlled substance at d/c from ED?: No Referrals: Dread Fournier DO [Primary Care Provider] - 1-2 days Time of Disposition: 21:20
[2022-06-24] MEDS ORDERED: HYDROmorphone 1 MG/ML 1 ML SYRINGE IM STA (21:06)
[2022-06-24] MEDS ORDERED: ACET/COD 300 MG/30 MG STARTER PACK 6 TAB BTL PO STA (21:20)
[2022-06-24 21:53] VITALS: RESP 18
[2022-06-24 21:54] VITALS: BP 122/68; PULSE 85
== END 2022-06-24 21:45 | disposition home or self-care (01) ==
LOC: EC 19:36
DX: I82.4Z2 Acute embolism and thrombosis of unspecified deep veins of left distal lower extremity (principal); F17.200 Nicotine dependence, unspecified, uncomplicated
CPT/HCPCS: 93971; 99284; 96372; J1170

== ENCOUNTER → 2022-08-05 | Outpatient (CLI) | payer MEDICARE ==
[2022-08-05 15:53] LABS: Chol/HDL Ratio 2.63 Ratio; LDL Cholesterol,Calculated 39.3 mg/dL
== END | disposition home or self-care (01) ==
LOC: LABWHC1 09:57
PROVIDERS: ATTEND Internal Medicine Interventional Cardiology
DX: E78.2 Mixed hyperlipidemia (principal)
CPT/HCPCS: 36415; 80053; 80061

== ENCOUNTER → 2022-09-04 | Outpatient (CLI) | payer MEDICARE ==
[2022-09-04 12:23] LABS: African American GFR (CKD) 81 (>60 ml/min/1.73 sqM); Blood Urea Nitrogen 22 mg/dL (9-20); Non-African American GFR(CKD) 70 (>60 ml/min/1.73 sqM)
--- NOTE | 2022-09-04 12:52 | CT ---
EXAMINATION TYPE: CT angio chest CT DLP: 607.80 mGycm, Automated exposure control for dose reduction was used. DATE OF EXAM: 09/04/2022 12:44 PM COMPARISON: CTA chest 06/17/2022, 06/19/2022 CLINICAL INDICATION:Male, 67 years old with history of I26.99; F/U RECENT PE. TECHNIQUE/CONTRAST: CTA scan of the thorax is performed with IV Contrast, patient injected with 100 mL of Isovue 370, pul monary embolism protocol. MIP images are created and reviewed. FINDINGS: Pulmonary Artery: Significant improvement of previously seen bilateral pulmonary emboli with residual pulmonary embolism involving the left lower lobe subsegmental branches (series 4, image 86 through 9 0).. The pulmonary artery is of normal size. Reflux of contrast into the IVC. Lungs/Pleura: No evidence of focal consolidation, pleural effusion or pneumothorax. Posterior depende nt subsegmental atelectasis. Airway: Large airways are patent. Heart: Heart is within normal limits for size. No pericardial effusion. Vasculature: No evidence of aortic aneurysm. Mediastinum: No evidence of adenopathy. Musculoskeletal: No acute osseous abnormalities. Findings consistent with DISH. Soft Tissues: Unremarkable. Lower neck: No significant findings. Upper Abdomen: No significant findings. IMPRESSION: Significant improvement of bilateral pulmonary emboli with residual left lower lobe subsegmental pulm onary emboli. No evidence for right heart strain.
== END | disposition home or self-care (01) ==
LOC: RADCTMAIN 11:41
PROVIDERS: ATTEND Internal Medicine Critical Care Medicine
DX: I26.99 Other pulmonary embolism without acute cor pulmonale (principal)
CPT/HCPCS: 82565; 84520; 71275; 36415; Q9967

== ENCOUNTER 2022-11-11 21:05 | Emergency (ER) | payer MEDICARE ==
[2022-11-11 21:45] VITALS: TEMP 99
--- NOTE | 2022-11-11 21:49 | ED ---
Extremity Problem HPI - General Chief complaint: Extremity Problem,Nontraumatic Stated complaint: Blood Clot Left Leg Time Seen by Provider: 11/11/22 21:45 Source: patient, RN notes reviewed Mode of arrival: ambulatory Limitations: no limitations - History of Present Illness Initial comments: This is a 67 year old male who presents to the emergency department for concerns of a DVT to the left leg. States that he has had increasing redness and swelling to the left leg over the last 1-2 days. Denies any injuries. He does have a history of DVTs and PEs and is currently taking Eliquis. He has had DVTs in this leg, but is unsure if they have ever entirely resolved. Denies any chest pain or shortness of breath associated with this. Denies any fevers, chills, sore throat, cough, dyspnea, chest pain, palpitations, abdominal pain, nausea, vomiting, diarrhea, back pain, or headaches. MD Complaint: extremity pain, extremity swelling Location: left, lower extremity - Related Data Home Medications Medication Instructions Recorded Confirmed Acetaminophen [Tylenol Extra 500 mg PO Q8H PRN 09/17/22 09/19/22 Strength] Apixaban [Eliquis] 5 mg PO BID 09/17/22 09/19/22 Metoprolol Tartrate 25 mg PO BID 09/17/22 09/19/22 Previous Rx's Medication Instructions Recorded Atorvastatin [Lipitor] 40 mg PO DAILY #60 tab 06/21/22 Cephalexin [Keflex] 500 mg PO Q6HR 7 Days #28 cap 11/12/22 Allergies Allergy/AdvReac Type Severity Reaction Status Date / Time No Known Allergies Allergy Verified 11/11/22 21:45 Review of Systems ROS Statement: Those systems with pertinent positive or pertinent negative responses have been documented in the HPI. ROS Other: All systems not noted in ROS Statement are negative. Past Medical History Past Medical History: Deep Vein Thrombosis (DVT), Pulmonary Embolus (PE) History of Any Multi-Drug Resistant Organisms: None Reported Past Surgical History: Appendectomy, Heart Catheterization, Hernia Repair Additional Past Surgical History / Comment(s): embolectomy. Past Anesthesia/Blood Transfusion Reactions: No Reported Reaction Past Psychological History: No Psychological Hx Reported Smoking Status: Current every day smoker, Former smoker Past Alcohol Use History: Occasional - Past Family History Father Family Medical History: Hypertension Additional Family Medical History / Comment(s): of prostate CA General Exam - General Exam Comments Initial Comments: Visual Physical Exam Vital signs reviewed General: Well-appearing, nontoxic, no acute distress. Head: Normocephalic, atraumatic Eyes: PERRLA, EOMI ENT: Airway patent Chest: Nonlabored breathing Skin: No visual rash, normal skin tone Neuro: Alert and oriented 3 Musculoskeletal: No gross abnormalities I performed the QuickNote portion of this chart. Signed Tiffanie Thao PA-C. Limitations: no limitations General appearance: alert, in no apparent distress Head exam: Present: atraumatic, normocephalic, normal inspection Respiratory exam: Present: normal lung sounds bilaterally. Absent: respiratory distress, wheezes, rales, rhonchi, stridor Cardiovascular Exam: Present: regular rate, normal rhythm, normal heart sounds. Absent: systolic murmur, diastolic murmur, rubs, gallop, clicks Extremities exam: Present: other (Erythema and 2+ pitting edema to the left distal tib-fib and foot. Minor overlying tenderness. 2+ DP and PT pulses. Capillary refill less than 1 second.) Neurological exam: Present: alert, oriented X3, CN II-XII intact Psychiatric exam: Present: normal affect, normal mood Course Vital Signs 11/11/22 11/12/22 21:41 01:09 Temperature 99.0 F Pulse Rate 100 73 Respiratory 22 18 Rate Blood Pressure 120/71 126/76 O2 Sat by Pulse 97 97 Oximetry Medical Decision Making - Medical Decision Making This is a 67-year-old male who presents to the emergency department for left leg pain and swelling. Was pt. sent in by a medical professional or institution? @ -No Did you speak to anyone other than the patient for history? @ -No Did you review nursing and triage notes? @ -Yes, and I agree, it is accurate with regards to the patient's symptoms. Were old charts reviewed? @ -No Differential Diagnosis? @ -Differential Leg Pain/Swelling: Leg fracture, leg sprain, DVT, PVD, arterial insufficiency, iliac artery aneurysm, cellulitis, compartment syndrome, tendinopathy, nerve entrapment, piriformis syndrome, osteoarthritis, rhabdomyolysis, this is not meant to be an all inclusive list. EKG interpreted by me (3pts min.)? @ -Not obtained X-rays interpreted by me (1pt min.)? @ -X-ray of the left tib-fib and foot obtained. My interpretation identifies soft tissue swelling and no acute fractures. CT interpreted by me (1pt min.)? @ -Not obtained U/S interpreted by me (1pt. min.)? @ -Not interpreted by me What testing was considered but not performed? (CT, X-rays, U/S, labs)? Why? @ -None What meds were considered but not given? Why? @ -None Did you discuss the management of the patient with other professionals? @ -No Did you reconcile home meds? @ -No Was smoking cessation discussed for >3mins.? @ -No Was critical care preformed (if so, how long)? @ -No Were there social determinants of health that impacted care today? How? (Homelessness, low income, unemployed, alcoholism, drug addiction, transportation, low edu. Level, literacy, decrease access to med. care, senior care, rehab)? @ -No Was there de-escalation of care discussed even if they declined? (Discuss DNR or withdrawal of care, Hospice)? @ -No What co-morbidities impacted this encounter? (DM, HTN, Smoking, COPD, CAD, Cancer, CVA, Hep., AIDS, mental health diagnosis, sleep apnea, morbid obesity)? @ -Hx of DVT Was patient admitted / discharged? @ -Discharged. Duplex ultrasound of the left lower extremity obtained revealing a stable to minimally improved DVT to the left lower extremity. X-ray of the left tib-fib and foot obtained as well revealing prominent soft tissue swelling. There is no evidence of subcutaneous emphysema. Discussed with the patient that because symptoms are acute in onset as well as unilateral, this may be related to cellulitis versus changes from the DVT. He is already on Eliquis and no changes to his blood thinners will be made. He was given a prescription for Keflex for possible cellulitic component. Otherwise advised close follow- up with his primary care provider for reevaluation. He is also instructed to keep the leg elevated. Undiagnosed new problem with uncertain prognosis? @ -None Drug Therapy requiring intensive monitoring for toxicity (Heparin, Nitro, Insulin, Cardizem)? @ -None Were any procedures done? @ -None Diagnosis/symptom? @ -Left lower extremity cellulitis Acute, or Chronic, or Acute on Chronic? @ -Acute Uncomplicated (without systemic symptoms) or Complicated (systemic symptoms)? @ -Uncomplicated Side effects of treatment? @ -None Exacerbation, Progression, or Severe Exacerbation] @ -Not applicable Poses a threat to life or bodily function? @ -No Return precautions reviewed in depth, the patient is instructed to return to the emergency department with any new, worsening, or concerning symptoms. Patient verbalized understanding. This case was discussed in detail with the attending ED physician, Dr. Parra. Presentation, findings, and treatment plan discussed in detail as well. - Radiology Data Radiology results: report reviewed, image reviewed Disposition Clinical Impression: Cellulitis of left lower extremity Disposition: HOME SELF-CARE Instructions (If sedation given, give patient instructions): Cellulitis (ED) Additional Instructions: Return to the emergency department with any new, worsening, or concerning symptoms. Take the antibiotic as prescribed for 7 days. Keep the leg elevated. Follow up with your primary care provider in 1-2 days. Prescriptions: Cephalexin [Keflex] 500 mg PO Q6HR 7 Days #28 cap Is patient prescribed a controlled substance at d/c from ED?: No Referrals: Dread Fournier DO [Primary Care Provider] - 1-2 days
--- NOTE | 2022-11-12 00:27 | US ---
EXAM: US Duplex Left Lower Extremity Veins CLINICAL HISTORY: Leg pain and swelling TECHNIQUE: Real-time duplex ultrasound scan of the left lower extremity veins integrating B-mode two-dimensional vascular structure, Doppler spectral analysis, color flow Doppler imaging and compression. COMPARISON: Left lower extremity venous duplex dated 06/24/2022 FINDINGS: Deep veins: The left common femoral and proximal deep femoral veins are compressible. The proximal left superficial femoral vein is compressible. There is partial compression of the mid and distal left superficial femoral vein, similar in appearance to the previous ultrasound examination. The left popliteal vein is partially compressible, somewhat improved from the previous examination. The proximal calf veins demonstrate internal color flow The right common femoral vein was interrogated and is patent. Superficial veins: No thrombus in the saphenofemoral junction. The infrageniculate saphenous vein demonstrates echogenic material without color flow. Soft tissues: No acute findings. No popliteal cyst. IMPRESSION: 1. There is partial compression of the mid and distal left superficial femoral vein, similar in appearance to the previous ultrasound examination. The left popliteal vein is partially compressible, somewhat improved from the previous examination. Findings are most consistent with stable to minimally improved chronic left lower extremity venous thrombus. 2. The infrageniculate greater saphenous vein is occluded. This area was not interrogated previously.
--- NOTE | 2022-11-12 00:35 | XR ---
EXAM: XR Left Foot Complete, 3 or More Views CLINICAL HISTORY: Pain and swelling TECHNIQUE: Frontal, lateral and oblique views of the left foot. COMPARISON: No relevant prior studies available. FINDINGS: Bones/joints: Prominent plantar calcaneal spur. Degenerative changes of the ankle, talonavicular and intertarsal joints. Periarticular erosive changes noted along the medial aspect of the first metatarsal phalangeal joint. No acute osseous abnormality. No dislocation. Soft tissues: Prominent soft tissue fullness involving the distal calf, ankle and dorsum of the foot. No tracking subcutaneous emphysema or radiopaque foreign body. IMPRESSION: Prominent soft tissue fullness involving the distal calf, ankle and dorsum of the foot. No tracking subcutaneous emphysema or radiopaque foreign body. In the absence of traumatic injury, the primary considerations include cellulitis or dependent venous stasis changes.
[2022-11-12] MEDS ORDERED: CEPHALEXIN 500MG STARTER PACK 4 CAP BTL PO STA (00:43)
[2022-11-12 01:10] VITALS: BP 126/76; PULSE 73; RESP 18
--- NOTE | 2022-11-12 01:14 | XR ---
EXAM: XR Left Tibia and Fibula, 2 Views CLINICAL HISTORY: Pain and swelling TECHNIQUE: Frontal and lateral views of the left tibia and fibula. COMPARISON: No relevant prior studies available. FINDINGS: Bones/joints: Unremarkable. No acute fracture. No dislocation. No radiographic evidence for osteomyelitis. Soft tissues: prominent soft tissue swelling throughout the calf and ankle. No radiopaque foreign body or subcutaneous emphysema. IMPRESSION: prominent soft tissue swelling throughout the calf and ankle. No radiopaque foreign body or subcutaneous emphysema. In the absence of traumatic injury, the differential considerations include cellulitis versus dependent venous stasis changes.
== END 2022-11-12 01:11 | disposition home or self-care (01) ==
LOC: EC 21:05
DX: L03.116 Cellulitis of left lower limb (principal); Z86.718 Personal history of other venous thrombosis and embolism; F17.200 Nicotine dependence, unspecified, uncomplicated; Z79.01 Long term (current) use of anticoagulants; Z79.899 Other long term (current) drug therapy
CPT/HCPCS: 99284

== ENCOUNTER → 2023-07-02 | Outpatient (CLI) | payer MEDICARE ==
--- NOTE | 2023-07-02 08:53 | US ---
EXAMINATION TYPE: US venous doppler duplex LE LT DATE OF EXAM: 07/02/2023 8:33 AM COMPARISON: NONE CLINICAL INDICATION: Male, 67 years old with history of R60.0 LOCALIZED EDEMA; LLE swelling; Hx DVT 2 023 within the left lower extremity. Hx PE, hx IVC filter June 2022. Currently on thinners SIDE PERFORMED: Left TECHNIQUE: The lower extremity deep venous system is examined utilizing real time linear array sonog rey with graded compression, doppler sonography and color-flow sonography. VESSELS IMAGED: Common Femoral Vein Deep Femoral Vein Greater Saphenous Vein * Femoral Vein Popliteal Vein Small Saphenous Vein * Proximal Calf Veins (* superficial vessels) Left Leg: DVT noted within the left mid and distal femoral vein as well as the entire course of the left popliteal vein. Likely chronic thrombus IMPRESSION: Chronic appearing deep vein thrombosis in the distal femoral vein to the popliteal vein.
== END | disposition home or self-care (01) ==
LOC: RADUSWWP 06:46
PROVIDERS: ATTEND Family Medicine
DX: I82.532 Chronic embolism and thrombosis of left popliteal vein (principal); I82.512 Chronic embolism and thrombosis of left femoral vein

== ENCOUNTER 2024-06-15 18:09 | Emergency (ER) | payer MEDICARE ==
--- NOTE | 2024-06-15 18:43 | ED ---
Upper Extremity HPI - General Chief Complaint: Extremity Injury, Upper Stated Complaint: R wrist injury Time Seen by Provider: 06/15/24 18:39 Source: patient, RN notes reviewed Mode of arrival: ambulatory Limitations: no limitations - History of Present Illness Initial Comments: 68-year-old male presenting for right wrist injury yesterday. States around noon yesterday he was carrying logs and tripped and fell on [employer]. He believes he fell on an outstretched hand. Denies head injury or loss of conscious. States over the past day he has had a "popping sensation" when he moves his right wrist and reports increasing swelling. Reports his pain is about a 4 right now. He does take Eliquis. - Related Data Home Medications Medication Instructions Recorded Confirmed Acetaminophen [Tylenol Extra 500 mg PO Q8H PRN 09/17/22 09/19/22 Strength] Apixaban [Eliquis] 5 mg PO BID 09/17/22 09/19/22 Metoprolol Tartrate 25 mg PO BID 09/17/22 09/19/22 Previous Rx's Medication Instructions Recorded Atorvastatin [Lipitor] 40 mg PO DAILY #60 tab 06/21/22 Cephalexin [Keflex] 500 mg PO Q6HR 7 Days #28 cap 11/12/22 Allergies Allergy/AdvReac Type Severity Reaction Status Date / Time No Known Allergies Allergy Verified 06/15/24 18:17 Review of Systems ROS Statement: Those systems with pertinent positive or pertinent negative responses have been documented in the HPI. ROS Other: All systems not noted in ROS Statement are negative. Past Medical History Past Medical History: Diabetes Mellitus, Deep Vein Thrombosis (DVT), Hy perlipidemia, Pulmonary Embolus (PE) History of Any Multi-Drug Resistant Organisms: None Reported Past Surgical History: Appendectomy, Heart Catheterization, Hernia Repair Additional Past Surgical History / Comment(s): embolectomy. Past Anesthesia/Blood Transfusion Reactions: No Reported Reaction Past Psychological History: No Psychological Hx Reported Smoking Status: Former smoker Past Alcohol Use History: None Reported, Occasional Past Drug Use History: None Reported - Past Family History Father Family Medical History: Hypertension Additional Family Medical History / Comment(s): of prostate CA General Exam Limitations: no limitations General appearance: alert, in no apparent distress Head exam: Present: atraumatic, normocephalic, normal inspection Right Elbow exam: Present: normal inspection, full ROM. Absent: tenderness, swelling Forearm Wrist exam: Present: full ROM, swelling, abrasion (Multiple abrasions present on hand and forearm). Absent: normal inspection (Diffuse swelling over lateral aspect of right wrist with tenderness to palpation.), tenderness, tenderness over anatomical snuff box Hand Wrist exam: Present: full ROM. Absent: tenderness, swelling, abrasion Vascular: Present: normal capillary refill, radial pulse. Absent: vascular compromise Neurological exam: Present: alert, oriented X3 Psychiatric exam: Present: normal affect, normal mood Skin exam: Present: warm, dry, intact, normal color. Absent: rash Course Vital Signs 06/15/24 18:13 Temperature 97.8 F Pulse Rate 89 Respiratory 19 Rate Blood Pressure 151/80 O2 Sat by Pulse 96 Oximetry Procedures - Orthopedic Splinting/Casting Injury #1 Side: right Upper Extremity Injury Location: wrist Upper Extremity Immobilizer: sugar tong splint Additional Comments: Neurovascularly intact status post splint Medical Decision Making - Medical Decision Making Was pt. sent in by a medical professional or institution (, PA, SYSTEMS SPECIALIST, urgent care, hospital, or fdc...) When possible be specific @ -No Did you speak to anyone other than the patient for history (EMS, parent, family, police, friend...)? What history was obtained from this source @ -No Did you review nursing and triage notes (agree or disagree)? Why? @ -I reviewed and agree with nursing and triage notes Were old charts reviewed (outside hosp., previous admission, EMS record, old EKG, old radiological studies, urgent care reports/EKG's, fdc records)? Report findings @ -No old charts were reviewed Differential Diagnosis (chest pain, altered mental status, abdominal pain women, abdominal pain men, vaginal bleeding, weakness, fever, dyspnea, syncope, headache, dizziness, GI bleed, back pain, seizure, CVA, palpatations, mental health, musculoskeletal)? @ -Differential Musculoskeletal Muscular strain, contusion, ligament sprain, fracture, arthritis, septic arthritis, bursitis, cellulitis, muscle spasm, nerve compression, DVT, arterial occlusion, herpes zoster, electrolyte abnormality, tumor.... This is not meant to be in all inclusive list EKG interpreted by me (3pts min.). @ -None X-rays interpreted by me (1pt min.). @ -X-ray right wrist reveals no acute process CT interpreted by me (1pt min.). @ -None done U/S interpreted by me (1pt. min.). @ -None done What testing was considered but not performed or refused? (CT, X-rays, U/S, labs)? Why? @ -None What meds were considered but not given or refused? Why? @ -Recommended tetanus due to abrasions however patient declines Did you discuss the management of the patient with other professionals (professionals i.e. , PA, SYSTEMS SPECIALIST, lab, RT, psych nurse, social worker health services, assembler musical instruments, teacher, anti air warfare operations officer, embedded case manager)? Give summary @ -No Was smoking cessation discussed for >3mins.? @ -No Was critical care preformed (if so, how long)? @ -No Were there social determinants of health that impacted care today? How? (Homelessness, low income, unemployed, alcoholism, drug addiction, transportation, low edu. Level, literacy, decrease access to med. care, [facility], rehab)? @ -No Was there de-escalation of care discussed even if they declined (Discuss DNR or withdrawal of care, Hospice)? DNR status @ -No What co-morbidities impacted this encounter? (DM, HTN, Smoking, COPD, CAD, Cancer, CVA, ARF, Chemo, Hep., AIDS, mental health diagnosis, sleep apnea, morbid obesity)? @ -None Was patient admitted / discharged? Hospital course, mention meds given and route, prescriptions, significant lab abnormalities, going to OR and other pertinent info. @ - discharge. 68-year-old male presenting for right wrist injury 1 day ago after fall on outstretched hand. Patient takes Eliquis. Neurovascularly intact. X-ray right wrist reveals no acute process. Due to swelling and pain, sugar-tong splint was performed and patient was advised to follow-up with orthopedics in 1 week for repeat x-rays. Appropriate return precautions and supportive care discussed. Case was discussed with my ED attending Dr. Elaine Undiagnosed new problem with uncertain prognosis? @ -No Drug Therapy requiring intensive monitoring for toxicity (Heparin, Nitro, Insulin, Cardizem)? @ -No Were any procedures done? @ -Yes, orthopedic splint performed Diagnosis/symptom? @ -Right wrist sprain Acute, or Chronic, or Acute on Chronic? @ -Acute Uncomplicated (without systemic symptoms) or Complicated (systemic symptoms)? @ -Uncomplicated Side effects of treatment? @ -No Exacerbation, Progression, or Severe Exacerbation? @ -No Poses a threat to life or bodily function? How? (Chest pain, [place], [place], pneumonia, PE, COPD, DKA, ARF, appy, cholecystitis, CVA, Diverticulitis, Homicidal, Suicidal, threat to staff... and all critical care pts) @ -No Disposition Clinical Impression: Right wrist sprain Disposition: HOME SELF-CARE Condition: Stable Instructions (If sedation given, give patient instructions): Wrist Injury (ED) Additional Instructions: Keep splint dry. Follow-up with orthopedics in 1 week for repeat x-rays. Please return to the Emergency Department if symptoms worsen or any other concerns. Is patient prescribed a controlled substance at d/c from ED?: No Referrals: Dread Fournier DO [Primary Care Provider] - 1-2 days Ahsan Willis DO [Doctor of Osteopathic Medicine] - 1-2 days Time of Disposition: 20:44
--- NOTE | 2024-06-15 19:14 | XR ---
EXAMINATION TYPE: XR wrist complete RT DATE OF EXAM: 06/15/2024 7:10 PM COMPARISON: None. CLINICAL INDICATION: Male, 68 years old with history of Right wrist injury; PHH, pain TECHNIQUE: XR wrist complete RT; examined in the Frontal, navicular, lateral, and oblique. FINDINGS: No acute osseous pathology, joint dislocation, or joint effusion. No evidence of any soft tissue swelling is seen. Carpal alignment appears maintained. IMPRESSION: No acute osseous pathology. [facility], , 06/15/2024 7:12 PM
[2024-06-15 21:00] VITALS: BP 136/77; PULSE 80; RESP 20; TEMP 98.7
== END 2024-06-15 21:00 | disposition home or self-care (01) ==
LOC: EC 18:09
DX: S63.501A Unspecified sprain of right wrist, initial encounter (principal); Z87.891 Personal history of nicotine dependence; W01.0XXA Fall on same level from slipping, tripping and stumbling without subsequent striking against object, initial encounter
CPT/HCPCS: 29125; 99283